=== PATIENT | male | born 1965 | race Caucasian/White ===

== ENCOUNTER 2020-07-30 10:37 | Outpatient (REF) | payer MEDICAID, SELFPAY ==
--- NOTE | 2020-07-30 10:42 | XR_ITS ---
EXAMINATION: XR SHOULDER, RIGHT CLINICAL INFORMATION: Instability COMPARISON: None TECHNIQUE: AP external rotation, Grashey, scapular Y, and axillary views of the right shoulder. FINDINGS: Bone alignment is normal. No fracture or dislocation is seen. The glenohumeral joint is normal. There is mild arthritis at the acromioclavicular joint with joint space narrowing. Soft tissues are unremarkable. XR/XR shoulder RT min 2V IMPRESSION: Mild arthritis at the acromioclavicular joint.
== END 2020-07-30 10:38 | disposition home or self-care (01) ==
LOC: HO.XRAY 10:37
PROVIDERS: PCP Internal Medicine; Visit Provider Internal Medicine
DX: M25.311 Other instability, right shoulder (principal)
CPT/HCPCS: 73030

== ENCOUNTER → 2020-11-23 09:13 | Outpatient (BNVA) | payer OTHER, SELFPAY | PROVIDERS: PCP Internal Medicine; Visit Provider Orthopaedic Surgery | DX: M75.41 Impingement syndrome of right shoulder (principal) | CPT/HCPCS: 99202 ==

== ENCOUNTER 2021-05-10 07:59 | Day surgery (SDC) | payer OTHER, SELFPAY ==
[2021-05-03 10:54] VITALS: BMI 32.6
--- NOTE | 2021-05-09 10:50 | HO.ANESPROP2 ---
Documented by User: Sofya Adams NP 05/09/21 10:50 HPI - Anesthesia Eval Consult details Narrative: 55yo M for Colonoscopy PMFSH Active Problems Active Problems: All Active Problems (Updated 11/23/20 @ 10:59 by Dang Yip MD) Rotator cuff impingement syndrome of right shoulder (Acute) Lipoma of abdominal wall (Acute) Obesity (BMI 30-39.9) (Acute) Anxiety (Acute) Osteoarthritis of right shoulder (Acute) Instability of right shoulder joint (Acute) Past Medical History Medical History Anxiety Instability of right shoulder joint Lipoma of abdominal wall Obesity (BMI 30-39.9) Osteoarthritis of right shoulder Reversal of sterilization Family History Family History Other Family history non-contributory Surgical History Surgical History H/O colonoscopy History of esophagogastroduodenoscopy (EGD) History of open reduction and internal fixation (ORIF) procedure History of vasectomy Social History Social History Household Members: Spouse Alcohol intake: never Patient Tobacco Use Status: Tobacco use Unknown Use of substances other than those prescribed or required for medical reasons: No Advance Directives Information Provided: Yes (informational brochure mailed) Advance Directives on File: No Current occupational status: employed Current occupation: self employed/rt hand Meds Allergies Allergy/AdvReac Type Severity Reaction Status Date / Time NSAIDS (Non-Steroidal Allergy Intermediate rectal Verified 05/03/21 08:09 Anti-Inflamma bleed/GI upset Home Medications Medication Instructions Recorded Confirmed Last Taken Type acetaminophen 650 mg 650 mg PO Q8H PRN 05/03/21 05/03/21 Unknown History tablet,extended release Exam Exam Date and Time: May 09, 2021 1050 Height,Weight and Vital Signs: Height 5 ft 8 in Weight 97.522 kg Assessment and Plan Assessment Anesthesia Assessment: Chart Reviewed Documented by User: Keya Duong MD 05/10/21 08:59 PMFSH Past Medical History Medical History Anxiety Instability of right shoulder joint Lipoma of abdominal wall Obesity (BMI 30-39.9) Osteoarthritis of right shoulder Reversal of sterilization Functional capacity: independent ambulation Family History Family History Other Family history non-contributory Family history of problems with anesthesia: No Surgical History Surgical History H/O colonoscopy History of esophagogastroduodenoscopy (EGD) History of open reduction and internal fixation (ORIF) procedure History of vasectomy History of Problems with Anesthesia: No Social History Social History Household Members: Spouse Alcohol intake: never Patient Tobacco Use Status: Tobacco use Unknown Use of substances other than those prescribed or required for medical reasons: No Advance Directives Information Provided: Yes (informational brochure mailed) Advance Directives on File: No Current occupational status: employed Current occupation: self employed/rt hand Meds Allergies Allergy/AdvReac Type Severity Reaction Status Date / Time NSAIDS (Non-Steroidal Allergy Intermediate rectal Verified 05/03/21 08:09 Anti-Inflamma bleed/GI upset Home Medications Medication Instructions Recorded Confirmed Last Taken Type acetaminophen 650 mg 650 mg PO Q8H PRN 05/03/21 05/03/21 Unknown History tablet,extended release Exam Airway Mallampati Class: III TM Dist: >3cm Neck ROM: Full Heart: RRR Lungs: CTA Assessment and Plan Final Anesthetic Review Family History of Problems with Anesthesia: No History of Problems with Anesthesia: No
[2021-05-10 08:05] VITALS: BP 147/69; PULSE 101; RESP 16; TEMP 36.7; O2SAT 98
[2021-05-10] MEDS: Lactated Ringers 1,000 ML 100 ML IVCONT (08:21)
[2021-05-10 09:48] VITALS: BP 88/50; PULSE 81; RESP 16; TEMP 36.8; O2SAT 96
--- NOTE | 2021-05-10 09:50 | PM.OP ---
Brief Operative Note Date of Service: 05/10/21 Pre-op diagnosis: Screening Post-op diagnosis: other (Colon polyps) Procedure: Colonoscopy to the cecum and TI with snare polypectomy and bx/removal of polyp Surgeon: Connor Boateng Anesthesia: MAC Was an Financial Services Technician used for this Procedure?: No Estimated blood loss (mL): 2.0 Pathology: other (A. Polyps at 12cm) Condition: stable Disposition: PACU
[2021-05-10 10:04] VITALS: BP 97/56; PULSE 73; RESP 18; O2SAT 95
[2021-05-10 10:17] VITALS: BP 123/76; PULSE 80; TEMP 36.7; O2SAT 98
--- NOTE | 2021-05-10 20:49 | OP_ITS ---
SURGEON: Connor Boateng MD INDICATIONS: The patient presents for evaluation of colorectal cancer screening, personal history of colon polyps, and family history of colon cancer. Full consent was obtained from him for this, including risks of bleeding and perforation. PREOPERATIVE DIAGNOSIS: POSTOPERATIVE DIAGNOSIS: PROCEDURE PERFORMED: Colonoscopy to cecum and terminal ileum with snare polypectomy and biopsy and removal of polyp. ESTIMATED BLOOD LOSS: COMPLICATIONS: ANESTHESIA: Monitored anesthesia care. ASSISTANTS: SPECIMENS: PREOPERATIVE DIAGNOSES: Colorectal cancer screening, personal history of colon polyps, family history of colon cancer. POSTOPERATIVE DIAGNOSES: Colorectal cancer screening, personal history of colon polyps, family history of colon cancer, colon polyps, diverticulosis, and internal hemorrhoids. DESCRIPTION OF PROCEDURE: The patient was placed in the left lateral decubitus position. The digital rectal exam revealed no abnormalities. The Olympus video pediatric colonoscope was entered into the rectum and advanced easily to the cecum. Once in the cecum, I did identify normal-appearing cecal pouch with appendiceal orifice and a normal-appearing ileocecal valve. The terminal ileum was cannulated and appeared normal. The scope was withdrawn back in the colon. The entire cecum and ileocecal valve appeared normal. The scope was slowly withdrawn assessing all mucosal surfaces carefully. Preparation was excellent. At 12 cm, were 2 polyps. One was approximately 3 or 4 mm in diameter and was biopsied and completely removed with cold biopsy forceps and the other polyp was approximately 10 mm and grossly adenomatous. This was snared and recovered by suction. The polypectomy site appeared clean, without any sign of residual polyp nor bleeding. I did not visualize any other polyps, colitis, or angiodysplasia. There was a mild amount of sigmoid diverticulosis. In the rectum, scope was retroflexed visualizing small internal hemorrhoids, but no other pathology. The rectal mucosa appeared normal. The scope was straightened and withdrawn from the patient. He tolerated the procedure well and was returned to the recovery area in stable condition. IMPRESSION: 1. Colon polyps, status post snare polypectomy, and biopsy removal. 2. Diverticulosis. 3. Internal hemorrhoids. PLAN: The results of the pathology will be checked. I would recommend a repeat colonoscopy in 5 years for further screening and surveillance. He was advised not to use any aspirin and NSAIDs for 1 week. MD GORDON Castillo/YAMIL / [id number]
== END 2021-05-10 10:57 | disposition home or self-care (01) ==
PROVIDERS: PCP Internal Medicine; Visit Provider Internal Medicine
PROC: 0DJD8ZZ Inspection of Lower Intestinal Tract, Via Natural or Artificial Opening Endoscopic (ICD-10-PCS; CPT 45378; principal; 2021-05-10 09:00)
DX: Z12.11 Encounter for screening for malignant neoplasm of colon (principal); Z86.010 Personal history of colon polyps; Z80.0 Family history of malignant neoplasm of digestive organs; D12.8 Benign neoplasm of rectum; K57.30 Diverticulosis of large intestine without perforation or abscess without bleeding; K64.8 Other hemorrhoids
CPT/HCPCS: 45385; 45380; 88305

== ENCOUNTER 2021-08-06 11:59 | Outpatient (REF) | payer OTHER, SELFPAY ==
--- NOTE | ~2021-08-06 | XR_ITS ---
EXAMINATION: XR CHEST CLINICAL INFORMATION: Cough. COMPARISON: 04/04/2019 chest radiographs. TECHNIQUE: Frontal view of the chest was obtained. FINDINGS: No significant abnormality is noted involving the heart, lungs, mediastinum, bony thorax or soft tissues. XR/XR chest 1V IMPRESSION: No acute cardiopulmonary process.
== END 2021-08-06 12:00 | disposition home or self-care (01) ==
LOC: HO.XRAY 11:59
PROVIDERS: PCP Internal Medicine; Visit Provider Nurse Practitioner Acute Care
DX: R05.8 Other specified cough (principal)
CPT/HCPCS: 71045

== ENCOUNTER 2021-08-21 10:06 | Outpatient (REF) | payer OTHER, SELFPAY ==
[2021-08-21 10:28] LABS: MANUAL DIFF FLAG NO
[2021-08-21 10:37] LABS: Basophils Percent Auto 0.7 % (0-2); Eosinophils Absolute Auto 0.1 X10*3/uL (0.0-0.4); Eosinophils Percent Auto 0.8 % (0-4); Hematocrit 45.4 % (42.0-52.0); Hemoglobin 15.6 g/dl (14.0-18.0); Imm Gran Abs Auto 0.01 X10*3/uL (0.00-0.03); Imm Gran Pct Auto 0.2 % (0.0-0.4); Lymphocytes Absolute Auto 2.4 X10*3/uL (1.2-4.9); Lymphocytes Percent Auto 40.1 % (20-40); Mean Corpuscular HGB Conc 34.4 g/dl (31.0-36.0); Mean Corpuscular Hemoglobin 30.5 pg (27.0-33.0); Mean Corpuscular Volume 88.8 fL (80.0-98.0); Mean Platelet Volume 9.2 fL (9.4-12.4); Monocytes Absolute Auto 0.4 X10*3/uL (0.1-1.2); Monocytes Percent Auto 6.7 % (2-11); Neutrophils Absolute Auto 3.1 x10*3/uL (2.0-8.3); Neutrophils Percent Auto 51.5 % (45-73); Platelet Count 276 X10*3/uL (160-400); Red Blood Count 5.11 X10*6/uL (4.60-5.80); Red Cell Distribution Width 11.8 % (11.0-16.0)
[2021-08-21 11:00] LABS: Estimated Average Glucose 100 mg/dL; Hemoglobin A1c % 5.1 %
[2021-08-21 11:42] LABS: Folate 9.2 ng/mL (> or = 4.0); Vitamin B12 364 pg/mL (200-900)
[2021-08-21 11:49] LABS: Alanine Aminotransferase 34 U/L (0-40); Albumin Level 4.8 g/dL (3.5-5.0); Alkaline Phosphatase 88 U/L (39-117); Anion Gap 11 (12-20); Aspartate Amino Transferase 26 U/L (5-37); Bilirubin Total 0.9 mg/dL (0.0-1.0); Blood Urea Nitrogen 16 mg/dL (9-16); Carbon Dioxide 26 mmol/L (22-29); Chloride 107 mmol/L (96-108); Cholesterol 232 mg/dL; Estimated Glomerular Filt Rate > 60; Glucose Fasting 103 mg/dL (60-99); HDL Cholesterol 38 mg/dL; LDL Cholesterol Calculated 177 mg/dl; Potassium 4.6 mmol/L (3.3-5.1); Sodium 139 mmol/L (135-145); Total Protein 7.5 g/dL (6.5-8.0); Triglycerides 88 mg/dL
[2021-08-21 11:53] LABS: Prostate Specific Antigen Scr 0.64 ng/mL (<0.05-4.0)
[2021-08-26 14:22] LABS: Vitamin D 25-OH, D2 <4 ng/mL; Vitamin D 25-OH, D3 31 ng/mL; Vitamin D 25-OH, Total 31 ng/mL (30-100)
== END 2021-08-21 10:07 | disposition home or self-care (01) ==
LOC: HO.LAB 10:06
PROVIDERS: Absent Provider Internal Medicine; PCP Internal Medicine; Visit Provider Nurse Practitioner Acute Care
DX: Z12.5 Encounter for screening for malignant neoplasm of prostate (principal); Z76.89 Persons encountering health services in other specified circumstances
CPT/HCPCS: 36415; 80053; 80061; 82306; 82607; 82746; 83036; 84153; 84443; 85025

== ENCOUNTER 2021-08-23 08:16 | Outpatient (REF) | payer OTHER, SELFPAY ==
--- NOTE | ~2021-08-23 | US_ITS ---
EXAMINATION: US ABDOMEN COMPLETE CLINICAL INFORMATION: Right lower quadrant pain. COMPARISON: Previous exam November 2010 TECHNIQUE: Real-time imaging of the abdominal viscera. FINDINGS: PANCREAS: Not well visualized due to bowel gas ABDOMINAL AORTA: Not well visualized due to bowel gas INFERIOR VENA CAVA: Visualized portions are normal. LIVER: The liver is normal in size. The liver contour is normal. Liver echotexture is normal. No focal hepatic lesion. There is no intrahepatic biliary duct dilatation seen. GALLBLADDER: Normal. The gallbladder is physiologically distended without evidence of stones, sludge, polyps, wall thickening or pericholecystic fluid. COMMON BILE DUCT: Normal in caliber measuring 0.2 cm in diameter. RIGHT KIDNEY: Normal. No hydronephrosis. No renal calculi or focal parenchymal lesions. The kidney measures 11.5 cm in maximum dimension. LEFT KIDNEY: Normal. No hydronephrosis. No renal calculi or focal parenchymal lesions. The kidney measures 11.6 cm in maximum dimension. SPLEEN: Normal. The spleen measures 10.4 cm in maximum dimension. FREE FLUID: None. US/US abdomen complete IMPRESSION: Limited visualization of the pancreas and aorta. Otherwise unremarkable exam.
== END 2021-08-23 08:17 | disposition home or self-care (01) ==
LOC: HO.HMGCX 08:16
PROVIDERS: Visit Provider Nurse Practitioner Acute Care
DX: R10.31 Right lower quadrant pain (principal)
CPT/HCPCS: 76700

== ENCOUNTER 2021-08-26 10:24 | Outpatient (REF) | payer OTHER, SELFPAY ==
--- NOTE | 2021-08-26 13:46 | MHC.AU.HAS ---
Hearing Aid Evaluation Date of Visit: 08/26/21 Historical Information: Description of Hearing: Right: Moderate to profound mixed hearing loss, Left: Normal to moderately-severe sensorineural hearing loss Summary: Patient was seen for audiological evaluation (see separate report for details). Patient feels he is ready for hearing aids. The word discrimination in the right ear is poorer than the left (36% in the right vs 88% in the left). Binaural word discrimination testing was performed to ensure that the poorer clarity in the right ear would not interfere with overall speech understanding. Binaural word discrimination was 88%, which suggests amplification to the right ear may not interfere with overall speech understanding. We will try a pair of traditional hearing aids rather than a BI-CROS system to start. If during the trial period the patient feels that traditional amplification in the right ear is not beneficial, we could swap it for a CROS. 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 Hearing Aid Prescription: Based on the individual?s shared listening needs, communication environments, dexterity, desire for connectivity, and personal preferences, the following prescription for amplification has been made: Right ear: Manager Enrollment: Phonak Model: Tuva Labseo P70-13T Battery Size: 13 Color: P5 Kiln Packer: 1UP Type of Mold: cShell Left ear: Manager Enrollment: Phonak Model: Audeo P70-13T Battery Size: 13 Color: P5 Kiln Packer: 1M Type of Mold: SlimTip Acyrlic Action Taken/Action Needed: Earmold Impressions Taken Medical Clearance to be requested from PCP/ENT Hearing Instrument Fitting to be scheduled when materials arrive Primary Diagnosis: H90.A31 Mixed HL, Unilateral Right Ear, W/Restricted Contralateral Signature: Provider: Roro Duncan, [facility]
--- NOTE | 2021-08-26 13:48 | MHC.AU.MED ---
Medical Clearance for Hearing Instrumentation Date: 08/26/21 Patient Name: Randy Augustin Date of : 1965 Referring Provider: Marcos Mckeon MD We have seen your patient on 08/26/21 and have determined that they are a candidate for amplification (See accompanying report). Specifically, they would benefit from: Hearing aid use in both ears There is a statute that addresses Medical Evaluation Requirements prior to fitting a patient with a hearing aid. According to [place] statute 265 CMR:6.03(1), (a) General. Except as provided in 265 CMR 6.03(1)(b), a purification operator shall not sell a hearing aid unless the prospective user has presented to the purification operator a written statement signed by a licensed physician that states that the patient's hearing loss has been medically evaluated and the patient may be considered a candidate for a hearing aid. The medical evaluation must have taken place within the preceding six months. Please note: Due to the [place] Statute referenced above, we cannot accept a signature other than that of a licensed physician. WAFER FABRICATION TECHNICIAN and PA signatures cannot be accepted. I am in agreement with the above recommendation. There is no medical contraindication for hearing instrumentation. Physician Signature Date Physician Name (Printed)
--- NOTE | 2021-08-26 13:48 | MHC.AU.ANO ---
Adult Audiological Evaluation Date of Visit: 08/26/21 Reason for Appointment: Patient reports significant difficulty hearing at home and in social situations. He feels his right ear is much worse than the left. He also reports occasional drainage from his ears. History of bilateral, constant tinnitus. Does patient feel they have a hearing loss?: Yes If Yes, Which Ear?: Both Ears When Was Hearing Difficulty First Noticed?: 10+ Years Ago Hearing Handicap Inventory: HHIE SCORE: 40 Based on HHIE score, patient has: Severe perceived hearing handicap Ear History: Ear Deformity: None Reported Recent Ear Drainage: Both Ears Recent Ear Pain: None Reported Family History of Hearing Loss?: No Recent Ear Infections: None Reported Ear Infections in Childhood: None Reported History of Ear Wax Buildup: None Reported Previous Ear Surgery: None Reported Bothersome Tinnitus/Ringing/Noises in Ears: Both Ears Ear used on the phone: Left Ear Blocked/Full Sensation in Ear(s): None Reported 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: [employer] Medical History: Medical History: Unremarkable Medical History Otoscopy: Right Ear: Unremarkable Left Ear: Unremarkable Tympanometry: Tympanometry performed due to: To assess integrity of the middle ear system Right Ear: Normal Middle Ear System (Type A) Left Ear: Normal Middle Ear System (Type A) Hearing Evaluation: Transducer(s) Used: Insert Earphones Method: Conventional Audiometry Stimuli Used: Pure Tones Right Ear: Description of Hearing: Moderate to profound mixed hearing loss Left Ear: Description of Hearing: Normal from 250-1000 Hz, steeply sloping to moderately-severe sensorineural hearing loss Speech Recognition Threshold (SRT): Method Used: Recorded Lists Stimuli Used: Spondee Words Right Ear: 65 dBHL Left Ear: 20 dBHL Word Discrimination: Method: Recorded Lists Word Lists Used: W-22 Right Ear: 36% at 80 dBHL Left Ear: 88% at 65 dBHL Most Comfortable Level (MCL): Right Ear: 80 dBHL Left Ear: 65 dBHL Recommendations: Audiological re-evaluation in one year. See Hearing Aid Evaluation report for more information. Referral to Ear, Nose, and Throat is highly recommended to address asymmetrical mixed hearing loss. Diagnosis: Primary Diagnosis: H90.A31 Mixed HL, Unilateral Right Ear, W/Restricted Contralateral Signature: Provider: Roro Duncan CCC-A
== END 2021-08-26 10:25 | disposition home or self-care (01) ==
LOC: HO.SH 10:24
PROVIDERS: Visit Provider Nurse Practitioner Acute Care
DX: Z01.118 Encounter for examination of ears and hearing with other abnormal findings (principal); Z46.1 Encounter for fitting and adjustment of hearing aid; H90.A31 Mixed conductive and sensorineural hearing loss, unilateral, right ear with restricted hearing on the contralateral side
CPT/HCPCS: 92557; 92567; 92591; V5275

== ENCOUNTER 2021-10-28 08:34 | Outpatient (REF) | payer OTHER, SELFPAY ==
--- NOTE | 2021-10-30 09:16 | MHC.AU.HFA ---
Hearing Instrument Fitting- Adult- Binaural Date of Visit: 10/28/21 Hearing Instruments Dispensed: Right Ear: Joint Maker Machine: Phonak Model: RunReveo P70-13T Serial Number: [id number] Repair Warranty: 12/28/2024 Loss and Damage Warranty: 12/28/2024 Battery Size: 13 Color: P5 Athlete Manager: 1UP Type of Mold: cShell #[id number] Warranty 01/29/2022 Type of Wax Guard: CeruStop Left Ear: Joint Maker Machine: Phonak Model: Audeo P70-13T Serial Number: [id number] Repair Warranty: 12/28/2024 Loss and Damage Warranty: 12/28/2024 Battery Size: 13 Color: P5 Athlete Manager: 1M Type of Mold: cShell #[id number] Warranty 01/29/2022 Type of Wax Guard: CeruStop Summary of Fitting: Feedback perioperative manager run. Verifit performed and levels adjusted to better reach targets. Patient was very pleased with the sound of the instruments. He was amazed that he could hear with his right ear, as he has not heard out of it in a long time. Hearing aid care and maintenance were discussed and practiced. Hearing aids were paired to his phone. Recommendations: Recommendations: A hearing instrument follow-up was scheduled. Diagnosis Code(s): Primary Diagnosis: H90.A31 Mixed HL, Unilateral Right Ear, W/Restricted Contralateral Signature: Provider: Roro Duncan, [facility]
== END 2021-10-28 08:35 | disposition home or self-care (01) ==
LOC: HO.HAP 08:34
PROVIDERS: Visit Provider Internal Medicine
DX: Z46.1 Encounter for fitting and adjustment of hearing aid (principal); H90.A31 Mixed conductive and sensorineural hearing loss, unilateral, right ear with restricted hearing on the contralateral side
CPT/HCPCS: V5011; V5020; V5160; V5261; V5264; V5266

== ENCOUNTER 2023-02-09 09:34 | Outpatient (AMB) | payer OTHER, SELFPAY ==
--- NOTE | 2023-02-09 10:38 | AM.OFFWIN_ITS ---
Intake Vital Signs 02/09/23 10:40 BP 120/76 Blood Pressure Location Rt brachial Position Sitting Pulse 64 Pulse Source Pulse Oximeter Pulse Oximetry (%) 99 Oxygen Delivery Method Room Air Intake Visit Reasons: EP, Back Pain Intake Note: Patient here because he put in a window about 2 weeks ago and is now having lower back pain and in hips. he has tried rest and tylenol which does not help. Patient Tobacco Use Status: Never used Tobacco Allergies NSAIDS (Non-Steroidal Anti-Inflamma Allergy (Intermediate, Verified 02/09/23 11:15) rectal bleed/GI upset fluoxetine Adverse Reaction (Intermediate, Verified 02/09/23 11:15) Headache Medication List - Last Reconciled 02/09/23 by Mikel Estrada MD acetaminophen ER 650 mg PO Q8H PRN lorazepam 0.5 mg PO DAILY PRN 30 days Do you need a note to return to daycare/school/sports/work: No HPI EP, Back Pain HPI Details Patient presents to the office for a sick visit. Complaining of lower back pain for the past week. No history of fall or trauma prior to the onset of symptoms. No urinary incontinence. No fevers or chills. Pain is worse on bending forwards or sideways. Relieve done sitting down. Pain is radiating into the gluteal area. [facility] Medical History (Updated 02/09/23 @ 11:17 by Mikel Estrada MD) Anxiety Encounter to establish care Instability of right shoulder joint Lipoma of abdominal wall Mild depressive disorder Obesity (BMI 30-39.9) Osteoarthritis of right shoulder Reversal of sterilization Surgical History (Updated 05/23/22 @ 14:22 by ANUP Shelton) H/O colonoscopy History of esophagogastroduodenoscopy (EGD) History of open reduction and internal fixation (ORIF) procedure History of vasectomy Family History Other Family history non-contributory Social History Household Members: Spouse Housing: House Alcohol intake: never Patient Tobacco Use Status: Never used Tobacco e-Cigarette/Vaping Use: Never Used Second Hand Smoke Exposure: No service: Yes Current occupational status: employed Current occupation: self employed/rt hand Cognitive needs: No Hearing needs: Yes (hearingaid ) Vision needs: Yes (glasses) Physical Exam Vital Signs: Last Vital Signs Pulse 64 02/09/23 10:40 BP 120/76 02/09/23 10:40 Pulse Ox 99 02/09/23 10:40 Oxygen Delivery Method Room Air 02/09/23 10:40 General: Yes no CVA tenderness Back/Spine/Pelvis Other: No paraspinal spasm. Back: no CVA tenderness Assessment & Plan Assessment & Plan (1) Chronic lower back pain: Code(s): M54.50 - Low back pain, unspecified; G89.29 - Other chronic pain Plan: Patient was advised to return for a Toradol injection. Meloxicam and cyclobenzaprine called in. . Patient was advised rest. Note for work if necessary provided. Once pain symptoms subside, patient should start physical therapy. If symptoms worsen to follow-up here. Coding Level of Care Code Est Pt Level 4 (30250) Diagnoses Chronic lower back pain M54.50; G89.29
[2023-02-09 10:40] VITALS: BP 120/76; PULSE 64; O2SAT 99
== END 2023-02-09 11:32 | disposition home or self-care (01) ==
PROVIDERS: PCP Internal Medicine; Visit Provider Internal Medicine
DX: M54.50 Low back pain, unspecified (principal); G89.29 Other chronic pain
CPT/HCPCS: 96372; 99214; J1885

== ENCOUNTER 2023-03-06 13:51 | Outpatient (AMB) | payer OTHER, SELFPAY ==
--- NOTE | 2023-03-06 13:54 | A.OFFPC_ITS ---
Vital Signs 03/06/23 14:00 Height 5 ft 8 in Weight 185 lb 6 oz BMI 28.2 BP 120/78 Blood Pressure Location Lt brachial Position Sitting Pulse 96 Pulse Source Pulse Oximeter Pulse Oximetry (%) 98 Oxygen Delivery Method Room Air Intake Visit Reasons: Back Pain/Lump Right side Neck Intake Note: Pt is here for back, hip pain, Lump on right side of the neck. Benefits Assistant Required: No Accompanied by: Spouse Allergies NSAIDS (Non-Steroidal Anti-Inflamma Allergy (Intermediate, Verified 03/06/23 14:03) rectal bleed/GI upset fluoxetine Adverse Reaction (Intermediate, Verified 03/06/23 14:03) Headache Tobacco use date assessed: 03/06/23 Dental Screening Dental Screen Date: 03/06/23 Did you have a dental visit in the last 12 months?: Yes Did you have a dental problem in the last 6 months where you did not have access to dental care?: No Was dental information given to patient?: Patient has dentist HPI HPI Comments History of Present Illness Details 57-year-old male past medical history significant for chronic low back pain, hyperlipidemia and generalized anxiety disorder. Patient of Dr. Mckeon patient present today for follow up. Review of the notes and patient was seen in the walk-in clinic on 02/09/23 after putting in a window patient denies any bowel arm or bladder complaints at that time and did have pain radiating to his glutes. Patient was given Toradol injection and was prescribed meloxicam. Patient states back pain has improved, Patient states left hip pain, hard to bend over and gets sharp. Patient states taking tylenol with some relief of pain. Patient requesting left hip x-ray. Patient also reports lump to right neck collar bone area, states previously had a cyst there 6 years ago for which she had removed. Patient unsure if the cyst is coming back. Denies any pain, difficultly swallowing or breathing. Patient also reports atypical mole to left thoracic back area, referral entered to Dermatology. [facility] Medical History (Updated 03/06/23 @ 14:21 by ANUP Crespo) Anxiety Encounter to establish care Instability of right shoulder joint Lipoma of abdominal wall Mild depressive disorder Obesity (BMI 30-39.9) Osteoarthritis of right shoulder Reversal of sterilization Surgical History H/O colonoscopy History of esophagogastroduodenoscopy (EGD) History of open reduction and internal fixation (ORIF) procedure History of vasectomy Family History Other Family history non-contributory Social History Household Members: Spouse Housing: House Alcohol intake: never Patient Tobacco Use Status: Never used Tobacco e-Cigarette/Vaping Use: Never Used Second Hand Smoke Exposure: No service: Yes Current occupational status: employed Current occupation: self employed/rt hand Cognitive needs: No Hearing needs: Yes (hearingaid ) Vision needs: Yes (glasses) Questionnaire PHQ-9 Over the last 2 weeks, how often have you been bothered by any of the following problems? 1. Little interest or pleasure in doing things: not at all 2. Feeling down, depressed, or hopeless: not at all 3. Trouble falling or staying asleep, or sleeping too much: not at all 4. Feeling tired or having little energy: not at all 5. Poor appetite or overeating: not at all 6. Feeling bad about yourself - or that you are a failure or have let yourself or your family down: not at all 7. Trouble concentrating on things, such as reading the newspaper or watching television: not at all 8. Moving or speaking so slowly that other people could have noticed. Or the opposite - being so fidgety or restless that you have been moving around a lot more than usual: not at all 9. Thoughts that you would be better off or of hurting yourself in some way: not at all Total score: 0 Depression Screening Interpretation: Negative 21788 - PHQ-9 Billing: Yes Source: Developed by Drs. Connor Starr, Radhika Wilde, Vidal Silva and colleagues, with an educational syed from [employer]. Thrive Questionnaire Date Thrive assessed: 03/06/23 I am a: Patient What is your living situation today?: I have a steady place to live Within the past 12 months, did the food you bought not last and you didn't have the money to get more?: Never true Within the past 12 months, did you worry whether your food would run out before you got money to buy more?: Never true Do you have trouble paying for medicines?: No Do you have trouble getting transportation to medical appointments?: No Do you have trouble paying your heating and electricity bill?: No Do you have trouble taking care of your child, family member or friend?: No Do you have trouble with day-to-day activities such as bathing, preparing meals, shopping, managing finances, etc.?: No Are you currently unemployed and looking for a job?: No Are you interested in more education?: No Please select the resources that you would like help with: None Currently or been in a relationship where the following occur: no concerns reported AUDIT C Alcohol Use Questionnaire (AUDIT-C) 1. How often do you have a drink containing alcohol?: Never 3. How often do you have six or more drinks on one occasion?: Never Total Score: 0 DOREEN-7 AMB Questionnaire DOREEN-7 Date DOREEN - 7 assessed: 03/06/23 (pt taking medication; lorazepam PRN) Feeling nervous, anxious, or on edge: 0 = Not at all Not being able to stop or control worryin = Not at all Worrying too much about different things: 0 = Not at all Trouble relaxin = Not at all Being so restless that it is hard to sit still: 0 = Not at all Becoming easily annoyed or irritable: 0 = Not at all Feeling afraid as if something awful might happen: 0 = Not at all Total DOREEN-7 score (0-4 normal; 5-9 mild; 10-14 moderate; 15-21 severe): 0 Source: Developed by Drs. Connor Starr, Radhika Wilde, Vidal Silva and colleagues, with an educational syed from [employer]. DOREEN-7 Assessment Billing DOREEN-7 Assessment Tool: DOREEN-7 Assessment 26738 Review of Systems Const Denies chills, Denies fatigue, Denies fever(s) and Denies poor appetite Eyes Denies no additional complaints ENT Reports Normal hearing present Card Denies chest pain, Denies syncope, Denies rapid heart rate and Denies dyspnea Resp Denies cough and Denies dyspnea GI Denies change in stool character, Denies constipation, Denies diarrhea, Denies nausea and Denies vomiting Denies dysuria, Denies urinary frequency and Denies urinary urgency Musc Reports arthralgias (left hip pain ) Skin/Breast Details: mole to left back Neuro Reports Normal hearing present, Denies confusion and Denies syncope Psych Denies confusion Endo Denies fatigue Physical exam (Primary Care) Vital Signs: Last Vital Signs Pulse 96 03/06/23 14:00 BP 120/78 03/06/23 14:00 Pulse Ox 98 03/06/23 14:00 Oxygen Delivery Method Room Air 03/06/23 14:00 BMI result Body Mass Index 28.2 Tobacco/Smoking Status: Tobacco use Status Tobacco use date assessed 03/06/23 03/06/23 14:06 Patient Tobacco Use Status Never used Tobacco 03/06/23 13:55 e-Cigarette/Vaping Use Never Used 03/06/23 13:55 PHQ-9: PHQ-9 Score PHQ-9: Total score 0 03/06/23 14:12 Depression Screening Interpretation: Negative Thrive Assessment: Date of Thrive Assessment Date Thrive assessed 03/06/23 03/06/23 14:06 Currently or been in a relationship where the following occur: no concerns reported Const General: No confusion Orientation/consciousness: No confusion HENMT Head: Yes normocephalic and Yes atraumatic Eyes Conjunctivae: conjunctivae normal Neck Neck images: 1. Firm rahat like prominence noted to right clavicle. With scar tissue noted from previous cyst removal Chest Chest palpation & inspection: normal inspection of the chest Resp Effort & Inspection: normal respiratory effort Auscultation: clear to auscultation bilaterally, no crackles, no rhonchi and no wheezes Cardio Rate: regular rate Rhythm: regular rhythm Heart sounds: S1 normal heart sound present and S2 normal heart sound present GI Inspection: Yes normal to inspection Back/Spine/Pelvis Back/spine/pelvis image: 1. irregular light brown, slighty raised wedge shaped nevi noted to left thoracic area. Neuro General: No confusion Cranial nerves: Yes Normal hearing present Extrem General: No edema Left lower extremity: normal to inspection and hip/thigh Details: abnormal ROM Details: pain with active ROM and pain with passive ROM; no tenderness, no swelling, no crepitus and no unusual warmth Assessment and Plan Assessment & Plan (1) Left hip pain: Code(s): M25.552 - Pain in left hip Plan: Refill sent on patient's meloxicam. Patient advised to take medication with food to prevent GI upset and do not take with any other NSAID medications. Left hip x-ray ordered as requested by patient. Offered referral physical therapy for hip pain however patient states he would like to have x-ray completed 1st. (2) Lump in neck: Comment: left side, Code(s): R22.1 - Localized swelling, mass and lump, neck Plan: Head and neck ultrasound ordered to further evaluate for possible cyst recurrent (3) Atypical nevi: Code(s): D22.9 - Melanocytic nevi, unspecified Plan: Referral entered to dermatology. Plan Keep scheduled follow-up with PCP year follow-up sooner if needed. Orders: Orders XR hip LT min 2V Today M25.552 - Pain in left hip US soft tiss head and/or neck Today R22.1 - Localized swelling, mass and lump, neck Referrals Dermatology Referral D22.9 - Melanocytic nevi, unspecified Medications: Refilled meloxicam 15 mg PO DAILY 14 tabs 0RF Coding Level of Care Code Est Pt Level 3 (88542) Diagnoses Left hip pain M25.552 Lump in neck R22.1 Atypical nevi D22.9 Additional Codes DOREEN-7 Assessment Billing - DOREEN-7 Assessment Tool: DOREEN-7 Assessment 61557 ([id number])
[2023-03-06 14:00] VITALS: BP 120/78; PULSE 96; O2SAT 98; BMI 28.2
== END 2023-03-06 14:31 | disposition home or self-care (01) ==
PROVIDERS: PCP Internal Medicine; Visit Provider Nurse Practitioner Family
DX: M25.552 Pain in left hip (principal); R22.1 Localized swelling, mass and lump, neck; D22.9 Melanocytic nevi, unspecified
CPT/HCPCS: 99213

== ENCOUNTER 2023-03-13 09:48 | Outpatient (REF) | payer OTHER, SELFPAY ==
--- NOTE | ~2023-03-13 | XR_ITS ---
EXAMINATION: XR HIP, LEFT CLINICAL INFORMATION: Left hip pain COMPARISON: None available. TECHNIQUE: Two views of the left hip. FINDINGS: Mild degenerative changes with joint space narrowing and hypertrophic change left hip. Mild degenerative changes on limited views of the left sacroiliac joint. XR/XR hip LT min 2V IMPRESSION: Mild degenerative changes left hip. Additional imaging with CT scan or MRI should be considered for better visualization as these modalities are much more sensitive for detection of fracture or other underlying pathology.
== END 2023-03-13 09:49 | disposition home or self-care (01) ==
LOC: HO.XRAY 09:48
PROVIDERS: PCP Internal Medicine; Visit Provider Nurse Practitioner Family
DX: M25.552 Pain in left hip (principal)
CPT/HCPCS: 73502

== ENCOUNTER 2023-03-16 12:44 | Outpatient (REF) | payer OTHER, SELFPAY ==
--- NOTE | ~2023-03-16 | US_ITS ---
EXAMINATION: US SOFT TISSUE HEAD/NECK CLINICAL INFORMATION: Right neck lump. COMPARISON: None available. TECHNIQUE: Linear transducer padilla-scale and color Doppler examination of the area indicated by patient midline right supraclavicular. FINDINGS: No ultrasound abnormality in the supraclavicular region is identified by ultrasound. No solid or cystic mass or lymphadenopathy is seen. There is an 8 x 6 x 7 mm spongiform nodule in the right thyroid isthmus. TI RADS category 1. No ultrasound followup or fine-needle aspiration recommended. No other thyroid nodule appreciated. The right lobe of the thyroid gland measures 5 x 1.6 x 1.3 cm, volume 5.4 mL. The left lobe of the thyroid gland measures 4.4 x 1.3 x 1.7 cm, volume 5.1 mL. Thyroid gland is normal in size, echotexture and vascularity. US/US soft tiss head and/or neck IMPRESSION: No abnormality in the right supraclavicular region seen by ultrasound. Subcentimeter spongiform right thyroid isthmus nodule. TI RADS category 1. No ultrasound followup or fine-needle aspiration recommended.
== END 2023-03-16 12:45 | disposition home or self-care (01) ==
LOC: HO.HMGCX 12:44
PROVIDERS: PCP Internal Medicine; Visit Provider Nurse Practitioner Family
DX: R22.1 Localized swelling, mass and lump, neck (principal)
CPT/HCPCS: 76536

== ENCOUNTER 2023-05-27 13:37 | Outpatient (AMB) | payer OTHER, SELFPAY ==
[2023-05-27 13:42] VITALS: BP 108/76; PULSE 86; O2SAT 98; BMI 28.5
--- NOTE | 2023-05-27 13:42 | A.OFFPC_ITS ---
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 Accompanied by: Self / Same As Patient Allergies NSAIDS (Non-Steroidal Anti-Inflamma Allergy (Intermediate, Verified 05/27/23 14:00) rectal bleed/GI upset fluoxetine Adverse Reaction (Intermediate, Verified 05/27/23 14:00) Headache Medication List - Last Reconciled 05/27/23 by Marcos Mckeon MD acetaminophen ER 650 mg PO Q8H PRN cyclobenzaprine 10 mg PO BEDTIME PRN lorazepam 0.5 mg PO DAILY PRN 30 days Tobacco use date assessed: 05/27/23 Dental Screening Dental Screen Date: 05/27/23 Did you have a dental visit in the last 12 months?: No Did you have a dental problem in the last 6 months where you did not have access to dental care?: No Was dental information given to patient?: No HPI Annual Exam HPI Details Patient comes in today for his annual physical examination - was last seen by me on 11/15/2020 States that he feels okay He denies any headaches or dizziness Denies any chest pains, no SOB No nausea/vomiting, no abdominal pain No change in bowel habits noted Denies any acute urinary symptoms His colonoscopy was last done in 2020 and he will be due for repeat colonoscopy in 5 years (2025) [facility] Medical History (Updated 05/30/23 @ 11:38 by Marcos Mckeon MD) Pure hypercholesterolemia Mild depressive disorder Encounter to establish care Lipoma of abdominal wall Obesity (BMI 30-39.9) Anxiety Osteoarthritis of right shoulder Reversal of sterilization Instability of right shoulder joint Surgical History (Updated 05/27/23 @ 14:14 by Marcos Mckeon MD) History of open reduction and internal fixation (ORIF) procedure History of esophagogastroduodenoscopy (EGD) H/O colonoscopy History of vasectomy Family History Other Family history non-contributory Social History Household Members: Spouse Housing: House Alcohol intake: never Patient Tobacco Use Status: Never used Tobacco e-Cigarette/Vaping Use: Never Used Second Hand Smoke Exposure: No service: Yes Current occupational status: employed Current occupation: self employed/rt hand Cognitive needs: No Hearing needs: Yes (hearingaid ) Vision needs: Yes (glasses) Questionnaire PHQ-9 Over the last 2 weeks, how often have you been bothered by any of the following problems? 1. Little interest or pleasure in doing things: not at all 2. Feeling down, depressed, or hopeless: not at all 3. Trouble falling or staying asleep, or sleeping too much: not at all 4. Feeling tired or having little energy: not at all 5. Poor appetite or overeating: not at all 6. Feeling bad about yourself - or that you are a failure or have let yourself or your family down: not at all 7. Trouble concentrating on things, such as reading the newspaper or watching television: not at all 8. Moving or speaking so slowly that other people could have noticed. Or the opposite - being so fidgety or restless that you have been moving around a lot more than usual: not at all 9. Thoughts that you would be better off or of hurting yourself in some way: not at all Total score: 0 Depression Screening Interpretation: Negative Depression Screening Done: Yes 64021 - PHQ-9 Billing: Yes Source: Developed by Drs. Connor Starr, Radhika Wilde, Vidal Silva and colleagues, with an educational syed from [employer]. Thrive Questionnaire Date Thrive assessed: 05/27/23 I am a: Patient What is your living situation today?: I have a steady place to live Within the past 12 months, did the food you bought not last and you didn't have the money to get more?: Never true Within the past 12 months, did you worry whether your food would run out before you got money to buy more?: Never true Do you have trouble paying for medicines?: No Do you have trouble getting transportation to medical appointments?: No Do you have trouble paying your heating and electricity bill?: No Do you have trouble taking care of your child, family member or friend?: No Do you have trouble with day-to-day activities such as bathing, preparing meals, shopping, managing finances, etc.?: No Are you currently unemployed and looking for a job?: No Are you interested in more education?: No Please select the resources that you would like help with: None Currently or been in a relationship where the following occur: no concerns reported AUDIT C Alcohol Use Questionnaire (AUDIT-C) 1. How often do you have a drink containing alcohol?: Never 3. How often do you have six or more drinks on one occasion?: Never Total Score: 0 Score Reviewed/Action Taken: Yes DOREEN-7 AMB Questionnaire DOREEN-7 Date DOREEN - 7 assessed: 05/27/23 (pt taking medication; lorazepam PRN) Feeling nervous, anxious, or on edge: 0 = Not at all Not being able to stop or control worryin = Not at all Worrying too much about different things: 0 = Not at all Trouble relaxin = Not at all Being so restless that it is hard to sit still: 0 = Not at all Becoming easily annoyed or irritable: 0 = Not at all Feeling afraid as if something awful might happen: 0 = Not at all Total DOREEN-7 score (0-4 normal; 5-9 mild; 10-14 moderate; 15-21 severe): 0 Source: Developed by Drs. Connor Starr, Radhika Wilde, Vidal Silva and colleagues, with an educational syed from [employer]. DOREEN-7 Assessment Billing DOREEN-7 Assessment Tool: DOREEN-7 Assessment 37152 Review of Systems Const Denies chills, Denies fatigue, Denies fever(s), Denies headache(s), Denies malaise and Denies weakness Eyes Denies blurry vision, Denies change in vision, Denies irritation and Denies itchy eyes ENT Denies dysphagia, Denies dizziness, Denies otalgia, Denies headache(s), Denies nasal congestion, Denies neck pain, Denies odynophagia and Denies sore throat Card Denies chest pain, Denies rapid heart rate, Denies irregular heart rhythm, Denies palpitations and Denies dyspnea Resp Denies chest congestion, Denies cough, Denies dyspnea and Denies wheezing GI Denies abdominal pain, Denies bloating, Denies constipation, Denies dysphagia, Denies heartburn, Denies diarrhea, Denies nausea, Denies odynophagia and Denies vomiting Denies hematuria, Denies difficulty urinating, Denies dysuria, Denies urinary frequency and Denies urinary urgency Musc Denies back pain, Denies arthralgias, Denies joint swelling, Denies muscle weakness and Denies neck pain Skin/Breast Denies change in pigmentation, Denies lesions, Denies rash and Denies unusual bruising Neuro Denies dizziness, Denies headache(s), Denies paresthesias and Denies weakness Endo Denies fatigue and Denies palpitations Aller/Immun Denies itchy eyes and Denies wheezing Physical exam (Primary Care) Vital Signs: Last Vital Signs Pulse 86 05/27/23 13:42 BP 108/76 05/27/23 13:42 Pulse Ox 98 05/27/23 13:42 Oxygen Delivery Method Room Air 05/27/23 13:42 BMI result Body Mass Index 28.5 Tobacco/Smoking Status: Tobacco use Status Tobacco use date assessed 05/27/23 05/27/23 13:43 Patient Tobacco Use Status Never used Tobacco 05/27/23 13:43 Tobacco use type 05/27/23 14:16 e-Cigarette/Vaping Use Never Used 05/27/23 13:43 PHQ-9: PHQ-9 Score PHQ-9: Total score 0 05/27/23 14:10 Depression Screening Interpretation: Negative Thrive Assessment: Date of Thrive Assessment Date Thrive assessed 05/27/23 05/27/23 13:43 Currently or been in a relationship where the following occur: no concerns reported Const General: no acute distress, alert and awake Orientation/consciousness: patient oriented x3 HENMT Head: Yes normocephalic and Yes atraumatic Ears: external ears normal, TM's normal bilaterally and EAC's normal General nose exam: No nasal discharge present Face and sinus: Yes normal facial exam and Yes sinuses nontender Teeth and gingiva: dentition normal Throat: Yes posterior oropharynx normal and Yes tonsils normal (no TP congestion) Eyes Eyelids: Yes eyelids normal Conjunctivae: conjunctivae normal Pupils: Equal, round and reactive pupils present EOM: EOMs intact bilaterally Neck Neck: Yes no lymphadenopathy and Yes supple Thyroid: Thyroid normal Resp Auscultation: clear to auscultation bilaterally, no rales and no wheezes Cardio Rate: regular rate Rhythm: regular rhythm Heart sounds: no murmurs GI Palpation (GI): Soft to palpation, nontender and No hepatosplenomegaly present Auscultation: normal bowel sounds General: Yes no CVA tenderness Back/Spine/Pelvis Back: no CVA tenderness Thoracic/Lumbar Spine: thoracic and lumbar spine normal to inspection Skin Lesions: no lesions Rashes: no rashes Neuro General: patient oriented x3, moves all extremities, no focal motor deficits and CN's II-XI intact bilaterally Cranial nerves: Yes Equal, round and reactive pupils present Cognition (Neuro): normal cognition Gait exam (Neuro): Normal gait present Extrem General: Yes no clubbing, cyanosis or edema Assessment and Plan Assessment & Plan (1) Annual physical exam: Code(s): Z00.00 - Encounter for general adult medical examination without abnormal findings Plan: Check labs He is up-to-date with his cancer screenings (2) Pure hypercholesterolemia: Code(s): E78.00 - Pure hypercholesterolemia, unspecified Plan: Reinforced low cholesterol diet Reminded that his cholesterol levels back in July 2021 (when they were last checked) were elevated, with his total cholesterol at 232 mg/dl and LDL cholesterol at 177 mg/dl and that he should work on getting these lower if he wants to avoid having to take medications to help lower his cholesterol levels Will recheck his fasting lipids [facility] for follow up (3) Osteoarthritis of right shoulder: Code(s): M19.011 - Primary osteoarthritis, right shoulder Qualifiers: Osteoarthritis type: unspecified Qualified Code(s): M19.011 - Primary osteoarthritis, right shoulder Plan: X-rays of the right shoulder done in July 2020 showed (+) mild AC joint art hritis Continue Acetaminophen ER 650 mg Q 8 hours PRN Follow up with orthopedics as scheduled (4) Anxiety: Code(s): F41.9 - Anxiety disorder, unspecified Plan: Continue Lorazepam 0.5 mg QD PRN Advised again that if his anxiety gets worse, should consider taking something daily for maintenance therapy (5) Overweight (BMI 25.0-29.9): Code(s): E66.3 - Overweight Plan: Reinforced diet/exercise as tolerated/lose weight Plan To return in 1 year for his next annual physical examination Orders: Orders Comprehensive [place]. Panel Fast 05/27/23 Z00.00 - Encounter for general adult medical examination without abnormal findings Lipid Panel 05/27/23 E78.00 - Pure hypercholesterolemia, unspecified, Z00.00 - Encounter for general adult medical examination without abnormal findings Vitamin D 25-OH Total 05/27/23 E55.9 - Vitamin D deficiency, unspecified, Z00.00 - Encounter for general adult medical examination without abnormal findings Complete Blood Count Auto Diff 05/27/23 Z00.00 - Encounter for general adult medical examination without abnormal findings TSH reflex Free T4 05/27/23 Z00.00 - Encounter for general adult medical examination without abnormal findings UA CC w/rflx Micro + Cult 05/27/23 R30.0 - Dysuria, Z00.00 - Encounter for general adult medical examination without abnormal findings Prostate Specific Antigen 05/27/23 R35.0 - Frequency of micturition, Z00.00 - Encounter for general adult medical examination without abnormal findings Coding Level of Care Code Est Pt Prev Care 40-64y(10295) Diagnoses Annual physical exam Z00.00 Pure hypercholesterolemia E78.00 Osteoarthritis of right shoulder, unspecified osteoarthritis type M19.011 Osteoarthritis type: unspecified Anxiety F41.9 Overweight (BMI 25.0-29.9) E66.3 Additional Codes DOREEN-7 Assessment Billing - DOREEN-7 Assessment Tool: DOREEN-7 Assessment 59315 ([id number])
== END 2023-05-27 14:22 | disposition home or self-care (01) ==
PROVIDERS: Visit Provider Internal Medicine
DX: Z00.00 Encounter for general adult medical examination without abnormal findings (principal); E78.00 Pure hypercholesterolemia, unspecified; M19.011 Primary osteoarthritis, right shoulder; F41.9 Anxiety disorder, unspecified; E66.3 Overweight
CPT/HCPCS: 99396

== ENCOUNTER 2024-05-30 17:26 | Outpatient (AMB) | payer OTHER, SELFPAY ==
[2024-05-30 17:29] VITALS: BP 130/74; PULSE 91; O2SAT 98; BMI 30.3
--- NOTE | 2024-05-30 17:29 | A.OFFPC_ITS ---
Vital Signs 05/30/24 17:29 Height 5 ft 8 in Weight 199 lb BMI 30.3 BP 130/74 Blood Pressure Location Lt brachial Position Sitting Pulse 91 Pulse Source Pulse Oximeter Pulse Oximetry (%) 98 Oxygen Delivery Method Room Air Intake Visit Reasons: Annual Exam [employer] Officer Required: No Accompanied by: Self / Same As Patient Allergies NSAIDS (Non-Steroidal Anti-Inflamma Allergy (Intermediate, Verified 05/30/24 17:57) rectal bleed/GI upset fluoxetine Adverse Reaction (Intermediate, Verified 05/30/24 17:57) Headache Medication List - Last Reconciled 05/30/24 by Marcos Mckeon MD acetaminophen ER 650 mg PO Q8H PRN lorazepam 0.5 mg PO DAILY PRN 30 days Tobacco use date assessed: 05/30/24 Dental Screening Dental Screen Date: 05/30/24 Did you have a dental visit in the last 12 months?: No Did you have a dental problem in the last 6 months where you did not have access to dental care?: No Was dental information given to patient?: No HPI Annual Exam HPI Details Patient comes in today for his annual physical examination States that he feels okay He denies any headaches or dizziness Denies any chest pains, no SOB No nausea/vomiting, no abdominal pain No change in bowel habits noted Denies any acute urinary symptoms Needs his Lorazepam Rx refilled His colonoscopy was last done in 2020 and he will be due for repeat colonoscopy in 5 years (2025) [facility] Medical History (Updated 05/30/24 @ 19:25 by Marcos Mckeon MD) Mild depression Pure hypercholesterolemia Lipoma of abdominal wall Obesity (BMI 30-39.9) Anxiety Osteoarthritis of right shoulder Reversal of sterilization Instability of right shoulder joint Surgical History History of open reduction and internal fixation (ORIF) procedure History of esophagogastroduodenoscopy (EGD) H/O colonoscopy History of vasectomy Family History Other Family history non-contributory Social History Household Members: Spouse Housing: House Alcohol intake: never Patient Tobacco Use Status: Never used Tobacco e-Cigarette/Vaping Use: Never Used Second Hand Smoke Exposure: No service: Yes Current occupational status: employed Current occupation: self employed/rt hand Cognitive needs: No Hearing needs: Yes (hearingaid ) Vision needs: Yes (glasses) Questionnaire PHQ-9 Over the last 2 weeks, how often have you been bothered by any of the following problems? 1. Little interest or pleasure in doing things: not at all 2. Feeling down, depressed, or hopeless: not at all 3. Trouble falling or staying asleep, or sleeping too much: not at all 4. Feeling tired or having little energy: not at all 5. Poor appetite or overeating: not at all 6. Feeling bad about yourself - or that you are a failure or have let yourself or your family down: not at all 7. Trouble concentrating on things, such as reading the newspaper or watching television: not at all 8. Moving or speaking so slowly that other people could have noticed. Or the o pposite - being so fidgety or restless that you have been moving around a lot more than usual: not at all 9. Thoughts that you would be better off or of hurting yourself in some way: not at all Total score: 0 Depression Screening Interpretation: Negative Depression Screening Done: Yes 95458 - PHQ-9 Billing: Yes Source: Developed by Drs. Connor Starr, Rahdika Wilde, Vidal Silva and colleagues, with an educational syed from [employer]. Thrive Questionnaire Date Thrive assessed: 05/30/24 I am a: Patient What is your living situation today?: I have a steady place to live Within the past 12 months, did the food you bought not last and you didn't have the money to get more?: I choose not to answer this question Within the past 12 months, did you worry whether your food would run out before you got money to buy more?: I choose not to answer this question Do you have trouble paying for medicines?: No Do you have trouble getting transportation to medical appointments?: No Do you have trouble paying your heating and electricity bill?: No Do you have trouble taking care of your child, family member or friend?: I choose not to answer this question Do you have trouble with day-to-day activities such as bathing, preparing meals, shopping, managing finances, etc.?: No Are you currently unemployed and looking for a job?: No Are you interested in more education?: No Please select the resources that you would like help with: None Currently or been in a relationship where the following occur: I choose not to answer THRIVE Score: 0 AUDIT C Alcohol Use Questionnaire (AUDIT-C) 1. How often do you have a drink containing alcohol?: Never Total Score: 0 Score Reviewed/Action Taken: Yes DOREEN-7 AMB Questionnaire DOREEN-7 Date DOREEN - 7 assessed: 05/30/24 (pt taking medication; lorazepam PRN) Feeling nervous, anxious, or on edge: 0 = Not at all Not being able to stop or control worryin = Not at all Worrying too much about different things: 0 = Not at all Trouble relaxin = Not at all Being so restless that it is hard to sit still: 0 = Not at all Becoming easily annoyed or irritable: 0 = Not at all Feeling afraid as if something awful might happen: 0 = Not at all Total DOREEN-7 score (0-4 normal; 5-9 mild; 10-14 moderate; 15-21 severe): 0 Source: Developed by Drs. Connor Starr, Radhika Wilde, Vidal Silva and colleagues, with an educational seyd from [employer]. Review of Systems Const Denies chills, Denies fatigue, Denies fever(s), Denies headache(s), Denies malaise and Denies weakness Eyes Denies blurry vision, Denies change in vision, Denies irritation and Denies itchy eyes ENT Denies dysphagia, Denies dizziness, Denies otalgia, Denies headache(s), Denies nasal congestion, Denies neck pain, Denies odynophagia and Denies sore throat Card Denies chest pain, Denies rapid heart rate, Denies irregular heart rhythm, Denies palpitations and Denies dyspnea Resp Denies chest congestion, Denies cough, Denies dyspnea and Denies wheezing GI Denies abdominal pain, Denies bloating, Denies constipation, Denies dysphagia, Denies heartburn, Denies diarrhea, Denies nausea, Denies odynophagia and Denies vomiting Denies hematuria, Denies difficulty urinating, Denies dysuria, Denies urinary frequency and Denies urinary urgency Musc Denies back pain, Denies arthralgias, Denies joint swelling, Denies muscle weakness and Denies neck pain Skin/Breast Denies change in pigmentation, Denies lesions, Denies rash and Denies unusual bruising Neuro Denies dizziness, Denies headache(s), Denies paresthesias and Denies weakness Endo Denies fatigue and Denies palpitations Aller/Immun Denies itchy eyes and Denies wheezing Physical exam (Primary Care) Vital Signs: Last Vital Signs Pulse 91 05/30/24 17:29 BP 130/74 05/30/24 17:29 Pulse Ox 98 05/30/24 17:29 Oxygen Delivery Method Room Air 05/30/24 17:29 BMI result Body Mass Index 30.3 Tobacco/Smoking Status: Tobacco use Status Tobacco use date assessed 05/30/24 05/30/24 17:34 Patient Tobacco Use Status Never used Tobacco 05/30/24 17:34 Tobacco use type 05/27/23 14:20 e-Cigarette/Vaping Use Never Used 05/30/24 17:34 PHQ-9: PHQ-9 Score PHQ-9: Total score 0 05/30/24 18:14 Depression Screening Interpretation: Negative Thrive Assessment: Date of Thrive Assessment Date Thrive assessed 05/30/24 05/30/24 17:34 Currently or been in a relationship where the following occur: I choose not to answer Const General: no acute distress, alert and awake Orientation/consciousness: patient oriented x3 HENMT Head: Yes normocephalic and Yes atraumatic Ears: external ears normal, TM's normal bilaterally and EAC's normal General nose exam: No nasal discharge present Face and sinus: Yes normal facial exam and Yes sinuses nontender Teeth and gingiva: dentition normal Throat: Yes posterior oropharynx normal and Yes tonsils normal (no TP congestion) Eyes Eyelids: Yes eyelids normal Conjunctivae: conjunctivae normal Pupils: Equal, round and reactive pupils present EOM: EOMs intact bilaterally Neck Neck: Yes no lymphadenopathy and Yes supple Thyroid: Thyroid normal Resp Auscultation: clear to auscultation bilaterally, no rales and no wheezes Cardio Rate: regular rate Rhythm: regular rhythm Heart sounds: no murmurs GI Palpation (GI): Soft to palpation, nontender and No hepatosplenomegaly present Auscultation: normal bowel sounds General: Yes no CVA tenderness Back/Spine/Pelvis Back: no CVA tenderness Thoracic/Lumbar Spine: thoracic and lumbar spine normal to inspection Skin Lesions: no lesions Rashes: no rashes Neuro General: patient oriented x3, moves all extremities, no focal motor deficits and CN's II-XI intact bilaterally Cranial nerves: Yes Equal, round and reactive pupils present Cognition (Neuro): normal cognition Gait exam (Neuro): Normal gait present Extrem General: Yes no clubbing, cyanosis or edema Coding Level of Care Code Est Pt Prev Care 40-64y(73592) Diagnoses Annual physical exam Z00.00 Pure hypercholesterolemia E78.00 Osteoarthritis of right shoulder, unspecified osteoarthritis type M19.011 Osteoarthritis type: unspecified Anxiety F41.9 Obesity (BMI 30-39.9) E66.9 Assessment & Plan Assessment & Plan (1) Annual physical exam: Code(s): Z00.00 - Encounter for general adult medical examination without abnormal findings Category: Medical Plan: Check labs He is up-to-date with his colon cancer screening - is not due for repeat colonoscopy until 2025 (2) Pure hypercholesterolemia: Code(s): E78.00 - Pure hypercholesterolemia, unspecified Category: Medical Plan: Reinforced low cholesterol diet He is reminded that his cholesterol levels were elevated, with his total cholesterol at 232 mg/dl and LDL cholesterol at 177 mg/dl when they were last checked in July 2021 (he did not get his labs done when they were ordered last year), and that he should work on getting these lower if he wants to continue to avoid having to take medications to help lower his cholesterol levels Will recheck his fasting lipids [facility] for follow up (3) Osteoarthritis of right shoulder: Code(s): M19.011 - Primary osteoarthritis, right shoulder Category: Medical Qualifiers: Osteoarthritis type: unspecified Qualified Code(s): M19.011 - Primary osteoarthritis, right shoulder Plan: X-rays of the right shoulder done in July 2020 showed (+) mild AC joint arthritis Continue Acetaminophen ER 650 mg Q 8 hours PRN - states that his shoulder has not been bothering him too much lately Follow up with orthopedics as scheduled or as needed (4) Anxiety: Code(s): F41.9 - Anxiety disorder, unspecified Category: Medical Plan: Continue Lorazepam 0.5 mg QD PRN - Rx refilled (5) Obesity (BMI 30-39.9): Code(s): E66.9 - Obesity, unspecified Category: Medical Plan: Reinforced diet/exercise as tolerated/lose weight - he has gained about 12 pounds since his last visit Plan To return in 1 year for his next annual physical examination Orders: Orders Complete Blood Count Auto Diff Today D64.9 - Anemia, unspecified, Z00.00 - Encounter for general adult medical examination without abnormal findings Lipid Panel Today E78.00 - Pure hypercholesterolemia, unspecified, Z00.00 - Encounter for general adult medical examination without abnormal findings Vitamin D 25-OH Total Today E55.9 - Vitamin D deficiency, unspecified, Z00.00 - Encounter for general adult medical examination without abnormal findings Hemoglobin A1c Today R73.9 - Hyperglycemia, unspecified, Z00.00 - Encounter for general adult medical examination without abnormal findings Comprehensive [place]. Panel Fast Today E78.00 - Pure hypercholesterolemia, unspecified, Z00.00 - Encounter for general adult medical examination without abnormal findings TSH reflex Free T4 Today E78.00 - Pure hypercholesterolemia, unspecified, Z00.00 - Encounter for general adult medical examination without abnormal findings UA CC w/rflx Micro + Cult Today R30.0 - Dysuria, Z00.00 - Encounter for general adult medical examination without abnormal findings Prostate Specific Antigen Today N40.0 - Benign prostatic hyperplasia without lower urinary tract symptoms, Z00.00 - Encounter for general adult medical examination without abnormal findings Medications: Refilled lorazepam 0.5 mg PO DAILY 30 days PRN 30 tabs 1RF anxiety F41.9 - Anxiety disorder, unspecified
== END 2024-05-30 18:11 | disposition home or self-care (01) ==
LOC: HO.HMCH 17:27
PROVIDERS: PCP Internal Medicine; Visit Provider Internal Medicine
DX: Z00.00 Encounter for general adult medical examination without abnormal findings (principal); E78.00 Pure hypercholesterolemia, unspecified; E66.9 Obesity, unspecified; Z68.30 Body mass index [BMI] 30.0-30.9, adult; M19.011 Primary osteoarthritis, right shoulder; F41.9 Anxiety disorder, unspecified

== ENCOUNTER 2024-06-16 08:05 | Outpatient (REF) | payer OTHER, SELFPAY ==
[2024-06-16 09:56] LABS: MANUAL DIFF FLAG NO
[2024-06-16 10:05] LABS: Basophils Absolute Auto 0.1 X10*3/uL (0.0-0.2); Eosinophils Absolute Auto 0.1 X10*3/uL (0.0-0.4); Eosinophils Percent Auto 1.7 % (0-4); Hematocrit 42.5 % (42.0-52.0); Hemoglobin 14.8 g/dl (14.0-18.0); Imm Gran Abs Auto 0.01 X10*3/uL (0.00-0.03); Imm Gran Pct Auto 0.2 % (0.0-0.4); Lymphocytes Absolute Auto 2.2 X10*3/uL (1.2-4.9); Lymphocytes Percent Auto 38.4 % (20-40); Mean Corpuscular HGB Conc 34.8 g/dl (31.0-36.0); Mean Corpuscular Hemoglobin 30.5 pg (27.0-33.0); Mean Corpuscular Volume 87.4 fL (80.0-98.0); Mean Platelet Volume 9.2 fL (9.4-12.4); Monocytes Absolute Auto 0.4 X10*3/uL (0.1-1.2); Monocytes Percent Auto 6.9 % (2-11); Neutrophils Percent Auto 51.8 % (45-73); Platelet Count 234 X10*3/uL (160-400); Red Blood Count 4.86 X10*6/uL (4.60-5.80); Red Cell Distribution Width 11.9 % (11.0-16.0); White Blood Count 5.8 X10*3/uL (4.8-10.8)
[2024-06-16 10:10] LABS: Estimated Average Glucose 103 mg/dL; Hemoglobin A1C 130.3034 umol/L; Hemoglobin A1c % 5.2 % (<6.0); Total Hemoglobin (HGBA1C) 3868.6213 umol/L
[2024-06-16 10:13] LABS: Appearance Urine Clear; Color Urine Yellow; Glucose Urine UA Negative (Negative); Leukocyte Esterase Urine Negative (Negative); Nitrite Urine Negative (Negative); Urine Blood Negative (Negative); Urine Ketones Negative (Negative); Urine Protein Negative (Neg-Trace)
[2024-06-16 10:24] LABS: Alanine Aminotransferase 32 U/L (0-40); Albumin Level 4.5 g/dL (3.5-5.0); Alkaline Phosphatase 93 U/L (39-117); Anion Gap 12 (12-20); Aspartate Amino Transferase 31 U/L (5-37); Bilirubin Total 0.9 mg/dL (0.0-1.0); Blood Urea Nitrogen 14 mg/dL (9-16); Calcium 9.6 mg/dL (8.4-10.2); Carbon Dioxide 26 mmol/L (22-29); Chloride 106 mmol/L (96-108); Cholesterol 193 mg/dL (<200); Estimated Glomerular Filt Rate > 60; Glucose Fasting 109 mg/dL (60-99); HDL Cholesterol 42 mg/dL (>40); LDL Cholesterol Calculated 139 mg/dL (<100); Potassium 4.2 mmol/L (3.3-5.1); Sodium 140 mmol/L (135-145); Total Protein 6.9 g/dL (6.5-8.0); Triglycerides 60 mg/dL (<150)
[2024-06-16 10:46] LABS: TSH reflex Free T4 1.29 uIU/mL (0.32-4.0); Vitamin D 25-OH Total 40.6 ng/mL (>30)
== END 2024-06-16 08:06 | disposition home or self-care (01) ==
LOC: HO.HMGCLDS 08:05
PROVIDERS: PCP Internal Medicine; Visit Provider Internal Medicine
DX: Z00.00 Encounter for general adult medical examination without abnormal findings (principal); E78.00 Pure hypercholesterolemia, unspecified; E55.9 Vitamin D deficiency, unspecified; R73.9 Hyperglycemia, unspecified; N40.0 Benign prostatic hyperplasia without lower urinary tract symptoms; D64.9 Anemia, unspecified; R30.0 Dysuria; Z12.5 Encounter for screening for malignant neoplasm of prostate
CPT/HCPCS: 36415; 80053; 80061; 81003; 82306; 83036; 84153; 84443; 85025

== ENCOUNTER 2024-10-03 08:17 | Outpatient (AMB) | payer OTHER, SELFPAY ==
--- NOTE | 2024-10-03 08:19 | A.OFFPC_ITS ---
Vital Signs 10/03/24 08:21 10/03/24 08:59 Height 5 ft 8 in Weight 205 lb 6 oz BMI 31.2 BP 142/90 H 122/84 Blood Pressure Location Lt brachial Lt brachial Position Sitting Sitting Pulse 85 Pulse Source Pulse Oximeter Temp 97.3 F Temp Source Temporal Artery Scan Pulse Oximetry (%) 98 Oxygen Delivery Method Room Air Intake Visit Reasons: Depression Intake Note: Patient is here to follow up on Depression. 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 per policy Accompanied by: Self / Same As Patient Allergies NSAIDS (Non-Steroidal Anti-Inflamma Allergy (Intermediate, Verified 10/03/24 08:20) rectal bleed/GI upset fluoxetine Adverse Reaction (Intermediate, Verified 10/03/24 08:20) Headache Medication List - Last Reconciled 10/03/24 by Carly Moralez PA-C acetaminophen ER 650 mg PO Q8H PRN lorazepam 0.5 mg PO DAILY PRN 30 days Tobacco use date assessed: 10/03/24 Dental Screening Dental Screen Date: 10/03/24 Did you have a dental visit in the last 12 months?: Yes Did you have a dental problem in the last 6 months where you did not have access to dental care?: No Was dental information given to patient?: Patient has dentist HPI Depression HPI Details 59-year-old male with past medical histo ry obesity, anxiety, hypercholesterolemia, depression last seen 05/[address] Mckeon coming in for follow up. Presenting with depression and potential ADHD symptoms. He expresses prolonged depressive episodes not adequately managed by previous SSRIs due to inefficacy and side effects. Previous treatments included fluoxetine and sertraline, which he discontinued. Symptoms consistent with ADHD have been self-identified, including impulsivity resulting in injuries. High cholesterol has been noted, with levels improving due to dietary adjustments though still above goal. Denies other significant systemic symptoms or concerns. [facility] Medical History Mild depression Pure hypercholesterolemia Lipoma of abdominal wall Obesity (BMI 30-39.9) Anxiety Osteoarthritis of right shoulder Reversal of sterilization Instability of right shoulder joint Surgical History History of open reduction and internal fixation (ORIF) procedure History of esophagogastroduodenoscopy (EGD) H/O colonoscopy History of vasectomy Family History Other Family history non-contributory Social History Household Members: Spouse Housing: House Alcohol intake: never Patient Tobacco Use Status: Never used Tobacco e-Cigarette/Vaping Use: Never Used Second Hand Smoke Exposure: No service: Yes Current occupational status: employed Current occupation: self employed/rt hand Cognitive needs: No Hearing needs: Yes (hearingaid ) Vision needs: Yes (glasses) Questionnaire PHQ-9 Over the last 2 weeks, how often have you been bothered by any of the following problems? 1. Little interest or pleasure in doing things: more than half the days 2. Feeling down, depressed, or hopeless: nearly every day 3. Trouble falling or staying asleep, or sleeping too much: nearly every day 4. Feeling tired or having little energy: more than half the days 5. Poor appetite or overeating: more than half the days 6. Feeling bad about yourself - or that you are a failure or have let yourself or your family down: more than half the days 7. Trouble concentrating on things, such as reading the newspaper or watching television: nearly every day 8. Moving or speaking so slowly that other people could have noticed. Or the opposite - being so fidgety or restless that you have been moving around a lot more than usual: more than half the days 9. Thoughts that you would be better off or of hurting yourself in some way: several days Total score: 20 Depression Screening Interpretation: Positive Depression Screening Follow-up: Existing condition and New Medication prescribed Depression Screening Done: Yes Source: Developed by Drs. Connor Starr, Radhika Wilde, Vidal Silva and colleagues, with an educational syed from [employer]. Thrive Questionnaire Date Thrive assessed: 10/03/24 AUDIT C Alcohol Use Questionnaire (AUDIT-C) 1. How often do you have a drink containing alcohol?: Never Total Score: 0 DOREEN-7 AMB Questionnaire DOREEN-7 Date DOREEN - 7 assessed: 10/03/24 (pt taking medication; lorazepam PRN) Feeling nervous, anxious, or on edge: 2 = More than half the days Not being able to stop or control worryin = More than half the days Worrying too much about different things: 2 = More than half the days Trouble relaxin = Nearly every day Being so restless that it is hard to sit still: 3 = Nearly every day Becoming easily annoyed or irritable: 3 = Nearly every day Feeling afraid as if something awful might happen: 2 = More than half the days Total DOREEN-7 score (0-4 normal; 5-9 mild; 10-14 moderate; 15-21 severe): 17 Source: Developed by Drs. Connor Starr, Radhika Wilde, Vidal Silva and colleagues, with an educational syed from [employer]. Review of Systems Const Denies body aches, Denies chills, Denies fever(s), Denies headache(s) and Denies poor appetite Eyes Reports no additional complaints ENT Denies dizziness and Denies headache(s) Card Denies chest pain, Denies syncope, Denies edema, Denies irregular heart rhythm, Denies lightheadedness and Denies dyspnea Resp Denies cough and Denies dyspnea GI Denies abdominal pain, Denies constipation, Denies diarrhea, Denies nausea and Denies vomiting Reports no additional complaints Musc Reports no additional complaints and Denies abnormal gait Skin/Breast Reports system reviewed and no additional complaints, except as documented Neuro Denies abnormal gait, Denies dizziness, Denies syncope and Denies headache(s) Psych Reports no additional complaints Physical exam (Primary Care) Vital Signs: Last Vital Signs Temp 97.3 F 10/03/24 08:21 Pulse 85 10/03/24 08:21 BP 142/90 H 10/03/24 08:21 Pulse Ox 98 10/03/24 08:21 Oxygen Delivery Method Room Air 10/03/24 08:21 BMI result Body Mass Index 31.2 Tobacco/Smoking Status: Tobacco use Status Tobacco use date assessed 10/03/24 10/03/24 08:28 Patient Tobacco Use Status Never used Tobacco 10/03/24 08:28 Tobacco use type 05/27/23 14:20 e-Cigarette/Vaping Use Never Used 10/03/24 08:28 PHQ-9: PHQ-9 Score PHQ-9: Total score 20 10/03/24 08:28 Depression Screening Interpretation: Positive Depression Screening Follow-up: Existing condition and New Medication prescribed Thrive Assessment: Date of Thrive Assessment Date Thrive assessed 10/03/24 10/03/24 08:28 Const General: cooperative, healthy appearing, comfortable and no acute distress Orientation/consciousness: patient oriented x3 HENMT Head: Yes normocephalic Ears: hearing grossly normal bilaterally General nose exam: Normal external nose present Eyes General: appearance normal, both eyes and all related structures Conjunctivae: conjunctivae normal Neck Neck: Yes full ROM and Yes no lymphadenopathy Resp Effort & Inspection: normal respiratory effort Auscultation: clear to auscultation bilaterally, no crackles, no rales, no rhonchi and no wheezes Cardio Rate: regular rate Rhythm: regular rhythm Skin General skin exam: no rashes or lesions noted Neuro General: patient oriented x3 Gait exam (Neuro): Normal gait present Extrem General: Yes normal to inspection, Yes full ROM and No edema Psych Affect: normal affect Attitude: cooperative Insight: Good insight present (Psych) Judgement: Good judgement present (Psych) Coding Level of Care Code Est Pt Level 3 (98593) Diagnoses Mild depression F32.A Pure hypercholesterolemia E78.00 Overweight (BMI 25.0-29.9) E66.3 Generalized anxiety disorder F41.1 Difficulty concentrating R41.840 Assessment & Plan Assessment & Plan (1) Mild depression: Code(s): F32.A - Depression, unspecified Category: Medical Plan: The patient is to commence treatment with citalopram for depression, starting at 10 mg with a future possibility to titrate as needed, assessing for any side effects or lack of efficacy. A follow-up appointment is scheduled for two months to reassess mental health status and medication efficacy. Discussed with the patient possible side effects of this medication and when to present for re- evaluation (2) Pure hypercholesterolemia: Code(s): E78.00 - Pure hypercholesterolemia, unspecified Category: Medical Plan: Avoid foods that are high in cholesterol such as red meat, fried foods, eggs and baked goods. Triglyceride goal of less than 150 and LDL goal of less than 130. Not currently on medical management. Last LDL 139 discussed with patient lifestyle modification plan to repeat in 2 months at next visit. (3) Overweight (BMI 25.0-29.9): Code(s): E66.3 - Overweight Category: Medical Plan: Healthy diet and regular exercise is encouraged. (4) Generalized anxiety disorder: Code(s): F41.1 - Generalized anxiety disorder Category: Medical Plan: Patient on lorazepam 0.5 mg daily. Referral was placed to neuropsych at his last visit. (5) Difficulty concentrating: Code(s): R41.840 - Attention and concentration deficit Category: Medical Plan: A referral for a comprehensive [facility] evaluation [facility] is processed. Plan This note was constructed using voice recognition software. While every effort has been made to ensure accuracy and cell room supervisor, still areas may have been included sometimes these areas may affect the content or meeting of the given symptoms. Total time spent caring for the patient today was 20 minutes. This includes time spent before the visit reviewing the chart, time spent during the visit, and time spent after the visit and documentation. Patient was informed and verbally consented to the use of an ambient scribe for clinic note documentation during this visit. Orders: Orders Lipid Panel Today E78.00 - Pure hypercholesterolemia, unspecified Referrals Psychiatry Outpatient Consultation Service R41.840 - Attention and concentration deficit Medications: New citalopram 10 mg PO DAILY 90 tabs 0RF
[2024-10-03 08:21] VITALS: BP 142/90; PULSE 85; TEMP 36.3; O2SAT 98; BMI 31.2
--- OUTSIDE RECORDS SUMMARY | 2024-10-03 08:24 | XMS_ITS | Patient Health Record ---
Author Organization [facility] Address [address] [place] [address] Care Team Providers Care Processing Archivist Name Role Phone Shai Mckeon MDneth Primary Care Provider Connor Bradford Unavailable [phone] Reason For Referral No Information Medications Medication SIG (Take, Route, Frequency, Duration) Notes Start Date End Date Status Tylenol Arthritis Pain Not-Taking LORazepam Not-Taking Immunizations Vaccine Route Administration Date Status Comme nts Influenza Unknown 03/27/2020 Administered Social History Tobacco Use: Social History Observation Description Date Details (start date - stop date) Never Smoker NA - NA Tobacco Use/Smoking Question Answer Notes Patient is a nonsmoker Alcohol Screen Question Answer Notes Did you have a drink containing alcohol in the p ast year? No Points 0 Interpretation Negative Section Notes: Nonsmoker; no alcohol Problems Problem Type SNOMED Code ICD Code Onset Dates Problem Status W/U Status Risk Notes Problem 809936145765287 Preprocedural examination (Z01.818) Active confirmed Problem 626956267 History of colon polyps (Z86.010) Active confirmed Problem 714292718 Family history o f colon cancer (Z80.0) Active confirmed Problem Diverticulosis of colon (086539208) Diverticulosis of colon (K57.30) Active confirmed Plan Of Treatment Pending Test Test Name Order Date Pathology 05/10/2021 Future Test Test Name Order Date COLONOSCOPY 03/26/2021 Insurance Providers Payer Name Payer Address Payer Phone Subscriber Number Group Number Insured Name Patient Relationship to Insured Coverage Start Date Coverage End Date [facility] [employer] [facility] [address] [address] [place], [place] [id number] JOHN DAVENPORT Self - patient is the insured MEDICAID OF [employer] [address] [place] [phone] [phone] [id number] JOHN DAVENPORT Self - patient is the insured Medical (General) History Medical History History ICD Code Denies [place],DM,CVA,Lung disease,renal dise ase Hay fever Neg. colonoscpy in his 40's and then polyps removed at age 50--with Dr. Sanderson Occasional anxiety Surgical History Surgery Date(Month/Year) Broken bones/digits--has a landon in his ri t lower leg
[2024-10-03 08:59] VITALS: BP 122/84
== END 2024-10-03 08:58 | disposition home or self-care (01) ==
PROVIDERS: PCP Internal Medicine
DX: F32.A Depression, unspecified (principal); E78.00 Pure hypercholesterolemia, unspecified; E66.3 Overweight; F41.1 Generalized anxiety disorder; R41.840 Attention and concentration deficit

== ENCOUNTER → 2024-10-03 08:17 | Outpatient (BNVA) | payer OTHER, SELFPAY | PROVIDERS: PCP Internal Medicine | DX: F32.A Depression, unspecified (principal); E78.00 Pure hypercholesterolemia, unspecified; E66.3 Overweight; F41.1 Generalized anxiety disorder; R41.840 Attention and concentration deficit | CPT/HCPCS: 99212 ==

== ENCOUNTER 2024-12-06 08:10 | Outpatient (AMB) | payer OTHER, SELFPAY ==
--- OUTSIDE RECORDS SUMMARY | 2024-12-06 08:14 | XMS_ITS | Patient Health Record ---
Author Organization [facility] Address [address] [place] [address] Care Team Providers Care Boom Stick Man Name Role Phone Shai Mckeon MDneth Primary Care Provider Connor Bradford Unavailable [phone] Reason For Referral No Information Medications Medication [...] Problem Status W/U Status Risk Notes Problem [id number] Preprocedural examination (Z01.818) Active confirmed Problem 972135502 History of colon polyps (Z86.010) Active confirmed Problem 170911322 Family history o f colon cancer (Z80.0) Active confirmed Problem Diverticulosis o f colon (K57.30) Active confirmed Plan Of Treatment Pending Test Test Name Order Date Pathology 05/10/2021 Future Test Test Name Order Date COLONOSCOPY 03/26/2021 Insurance Providers Payer Name Payer Address Payer Phone Subscriber Number Group Number Insured Name Patient Relationship to Insured Coverage Start Date Coverage End Date [facility] [employer] [facility] [address] [address] [place], [place] [phone] [id number] JOHN DAVENPORT Self - patient is the insured MEDICAID OF [facility] [address] [place] [address] [id number] JOHN DAVENPORT Self - patient is the insured Medical (General) History Medical History History ICD Code Denies [place],DM,CVA,Lung disease,renal dise ase Hay fever Neg. colonoscpy in his 40's and then polyps removed at age 50--with Dr. Sanderson Occasional anxiety Surgical History Surgery Date(Month/Year) Broken bones/digits--has a landon in his ri ght lower leg
[2024-12-06 08:17] VITALS: BP 116/76; PULSE 67; RESP 18; TEMP 36.3; O2SAT 99; BMI 31.1
--- NOTE | 2024-12-06 08:17 | MHC.PC.OV ---
Vital Signs 12/06/24 08:17 Height 5 ft 8 in Weight 204 lb 6.4 oz BMI 31.1 BP 116/76 Blood Pressure Location Lt brachial Position Sitting Respiration 18 Pulse 67 Pulse Source Pulse Oximeter Temp 97.3 F Temp Source Temporal Artery Scan Pulse Oximetry (%) 99 Oxygen Delivery Method Room Air Intake Visit Reasons: f/u depression and HLD Sexual Assault Response Coordinator Required: No Accompanied by: Self / Same As Patient Allergies NSAIDS (Non-Steroidal Anti-Inflamma Allergy (Intermediate, Verified 12/06/24 08:44) rectal bleed/GI upset fluoxetine Adverse Reaction (Intermediate, Verified 12/06/24 08:44) Headache Medication List - Last Reconciled 12/06/24 by Carly Moralez PA-C acetaminophen ER 650 mg PO Q8H PRN lorazepam 0.5 mg PO DAILY PRN 30 days venlafaxine 37.5 mg PO DAILY Tobacco use date assessed: 12/06/24 Dental Screening Dental Screen Date: 12/06/24 Did you have a dental visit in the last 12 months?: No Did you have a dental problem in the last 6 months where you did not have access to dental care?: No Was dental information given to patient?: Patient has dentist HPI f/u depression and HLD HPI Details 59-year-old male with past medical history obesity, anxiety, hypercholesterolemia, depression last seen 09/2024 coming in for follow up. At his last visit patient was started on citalopram but did have symptoms with this medication and was switched to venlafaxine. Presenting for medication management related to generalized anxiety disorder and depressive disorder. Notably, the patient has experienced improvement with Citalopram in the past, but was transitioned to Venlafaxine starting at a low dose. Symptoms of fatigue have been noted, primarily in the post-morning period. Other reported side effects include sporadic mild headaches and increased fluid intake, resulting in nocturnal interruptions. The patient remains committed to Venlafaxine treatment, contemplating on dosing increment to further alleviate symptoms, while remaining vigilant on emergent side effects. [facility] Medical History Mild depression Pure hypercholesterolemia Lipoma of abdominal wall Obesity (BMI 30-39.9) Anxiety Osteoarthritis of right shoulder Reversal of sterilization Instability of right shoulder joint Surgical History History of open reduction and internal fixation (ORIF) procedure History of esophagogastroduodenoscopy (EGD) H/O colonoscopy History of vasectomy Family History Other Family history non-contributory Social History Household Members: Spouse Housing: House Alcohol intake: never Patient Tobacco Use Status: Never used Tobacco e-Cigarette/Vaping Use: Never Used Second Hand Smoke Exposure: No service: Yes Current occupational status: employed Current occupation: self employed/rt hand Cognitive needs: No Hearing needs: Yes (hearingaid ) Vision needs: Yes (glasses) Questionnaire PHQ-9 Over the last 2 weeks, how often have you been bothered by any of the following problems? 1. Little interest or pleasure in doing things: several days 2. Feeling down, depressed, or hopeless: several days 3. Trouble falling or staying asleep, or sleeping too much: several days 4. Feeling tired or having little energy: several days 5. Poor appetite or overeating: not at all 6. Feeling bad about yourself - or that you are a failure or have let yourself or your family down: not at all 7. Trouble concentrating on things, such as reading the newspaper or watching television: not at all 8. Moving or speaking so slowly that other people could have noticed. Or the opposite - being so fidgety or restless that you have been moving around a lot more than usual: not at all 9. Thoughts that you would be better off or of hurting yourself in some way: not at all Total score: 4 Depression Screening Interpretation: Positive Depression Screening Done: Yes 73001 - PHQ-9 Billing: Yes Source: Developed by Drs. Cnonor Starr, Radhika Wilde, Vidal Silva and colleagues, with an educational syed from [employer]. Thrive Questionnaire Date Thrive assessed: 12/06/24 I am a: Patient What is your living situation today?: I have a steady place to live Within the past 12 months, did the food you bought not last and you didn't have the money to get more?: Never true Within the past 12 months, did you worry whether your food would run out before you got money to buy more?: Never true Do you have trouble paying for medicines?: No Do you have trouble getting transportation to medical appointments?: No Do you have trouble paying your heating and electricity bill?: No Do you have trouble taking care of your child, family member or friend?: No Do you have trouble with day-to-day activities such as bathing, preparing meals, shopping, managing finances, etc.?: No Are you currently unemployed and looking for a job?: No Are you interested in more education?: No Please select the resources that you would like help with: None Currently or been in a relationship where the following occur: No concerns reported THRIVE Score: 0 AUDIT C Alcohol Use Questionnaire (AUDIT-C) 1. How often do you have a drink containing alcohol?: Never Total Score: 0 Score Reviewed/Action Taken: No DOREEN-7 AMB Questionnaire DOREEN-7 Date DOREEN - 7 assessed: 12/06/24 (pt taking medication; lorazepam PRN) Feeling nervous, anxious, or on edge: 1 = Several days Not being able to stop or control worryin = Several days Worrying too much about different things: 1 = Several days Trouble relaxin = Several days Being so restless that it is hard to sit still: 1 = Several days Becoming easily annoyed or irritable: 0 = Not at all Feeling afraid as if something awful might happen: 0 = Not at all Total DOREEN-7 score (0-4 normal; 5-9 mild; 10-14 moderate; 15-21 severe): 5 Source: Developed by Drs. Connor Starr, Radhika Wilde, Vidal Silva and colleagues, with an educational syed from [employer]. DOREEN-7 Assessment Billing DOREEN-7 Assessment Tool: DOREEN-7 Assessment 67650 Review of Systems Const Denies body aches, Denies chills, Denies fever(s), Denies headache(s) and Denies poor appetite Eyes Reports no additional complaints ENT Denies dysphagia, Denies dizziness, Denies headache(s) and Denies odynophagia Card Denies chest pain, Denies syncope, Denies edema, Denies irregular heart rhythm, Denies lightheadedness and Denies dyspnea Resp Denies cough and Denies dyspnea GI Denies abdominal pain, Denies constipation, Denies dysphagia, Denies diarrhea, Denies nausea, Denies odynophagia and Denies vomiting Reports no additional complaints Musc Reports no additional complaints and Denies abnormal gait Skin/Breast Reports system reviewed and no additional complaints, except as documented Neuro Denies abnormal gait, Denies dizziness, Denies syncope and Denies headache(s) Psych Reports no additional complaints Physical exam (Primary Care) Vital Signs: Last Vital Signs Temp 97.3 F 12/06/24 08:17 Pulse 67 12/06/24 08:17 Resp 18 12/06/24 08:17 BP 116/76 12/06/24 08:17 Pulse Ox 99 12/06/24 08:17 Oxygen Delivery Method Room Air 12/06/24 08:17 BMI result Body Mass Index 31.1 Tobacco/Smoking Status: Tobacco use Status Tobacco use date assessed 12/06/24 12/06/24 08:24 Patient Tobacco Use Status Never used Tobacco 12/06/24 08:24 Tobacco use type 05/27/23 14:20 e-Cigarette/Vaping Use Never Used 12/06/24 08:24 PHQ-9: PHQ-9 Score PHQ-9: Total score 4 12/06/24 08:24 Depression Screening Interpretation: Positive Thrive Assessment: Date of Thrive Assessment Date Thrive assessed 12/06/24 12/06/24 08:24 Currently or been in a relationship where the following occur: No concerns reported Const General: cooperative, healthy appearing, comfortable and no acute distress Orientation/consciousness: patient oriented x3 [facility] Head: Yes normocephalic Ears: hearing grossly normal bilaterally General nose exam: Normal external nose present Eyes General: appearance normal, both eyes and all related structures Conjunctivae: conjunctivae normal Neck Neck: Yes full ROM and Yes no lymphadenopathy Resp Effort & Inspection: normal respiratory effort Auscultation: clear to auscultation bilaterally, no crackles, no rales, no rhonchi and no wheezes Cardio Rate: regular rate Rhythm: regular rhythm Skin General skin exam: no rashes or lesions noted Neuro General: patient oriented x3 Gait exam (Neuro): Normal gait present Extrem General: Yes normal to inspection, Yes full ROM and No edema Psych Affect: normal affect Attitude: cooperative Insight: Good insight present (Psych) Judgement: Good judgement present (Psych) Coding Level of Care Code Est Pt Level 3 (63893) Diagnoses Mild depression F32.A Pure hypercholesterolemia E78.00 Overweight (BMI 25.0-29.9) E66.3 Generalized anxiety disorder F41.1 Difficulty concentrating R41.840 Additional Codes DOREEN-7 Assessment Billing - DOREEN-7 Assessment Tool: DOREEN-7 Assessment 74965 ([id number]) PHQ-9 - 98695 - PHQ-9 Billing: Yes ([id number]) Assessment & Plan Assessment & Plan (1) Mild depression: Code(s): F32.A - Depression, unspecified Category: Medical Plan: Patient feels the venlafaxine has been beneficial but would like to increase the dose at this time. He is having mild side effects but feels they are tolerable and would like to continue to increase this time. Plan to follow up in 4 weeks or sooner if needed. (2) Pure hypercholesterolemia: Code(s): E78.00 - Pure hypercholesterolemia, unspecified Category: Medical Plan: Avoid foods that are high in cholesterol such as red meat, fried foods, eggs and baked goods. Triglyceride goal of less than 150 and LDL goal of less than 130. Not currently on medical management. Reminded about blood work. (3) Overweight (BMI 25.0-29.9): Code(s): E66.3 - Overweight Category: Medical Plan: Healthy diet and regular exercise is encouraged. (4) Generalized anxiety disorder: Code(s): F41.1 - Generalized anxiety disorder Category: Medical Plan: Patient on lorazepam 0.5 mg daily. Referral was placed to neuropsych with Dr. Cordero. (5) Difficulty concentrating: Code(s): R41.840 - Attention and concentration deficit Category: Medical Plan: A referral for a comprehensive ADHD evaluation at the [place] outpatient [facility] is processed. Plan The management for generalized anxiety disorder and depressive disorder includes augmenting the Venlafaxine dosage to 50 mg, with dosing adjustment to bedtime to address fatigue. A telehealth follow-up in four weeks is established to review the medication's impact and any emergent side effects. Conversely, the patient will complete pending blood tests as workload pressures permit, achieving a balance between therapeutic benefits and side-effect profile requires further diligence. Continuous assessment of heart complaints is crucial, and present headaches are acknowledged as a manageable side effect in light of the overall therapeutic benefit. This note was constructed using voice recognition software. While every effort has been made to ensure accuracy and assembler arranger, still areas may have been included sometimes these areas may affect the content or meeting of the given symptoms. Total time spent caring for the patient today was 20 minutes. This includes time spent before the visit reviewing the chart, time spent during the visit, and time spent after the visit and documentation. Patient was informed and verbally consented to the use of an ambient scribe for clinic note documentation during this visit. Medications: New venlafaxine 50 mg PO DAILY 30 tabs 0RF Discontinued venlafaxine Discontinued Reason: Patient no longer taking 37.5 mg PO DAILY 30 tabs 1RF
== END 2024-12-06 08:58 | disposition home or self-care (01) ==
LOC: HO.HMCH 08:11
PROVIDERS: PCP Internal Medicine
DX: F32.A Depression, unspecified (principal); E78.00 Pure hypercholesterolemia, unspecified; E66.3 Overweight; F41.1 Generalized anxiety disorder; R41.840 Attention and concentration deficit

== ENCOUNTER → 2024-12-06 08:10 | Outpatient (BNVA) | payer OTHER, SELFPAY | PROVIDERS: PCP Internal Medicine | DX: F32.A Depression, unspecified (principal); E78.00 Pure hypercholesterolemia, unspecified; E66.3 Overweight; Z68.31 Body mass index [BMI] 31.0-31.9, adult; F41.1 Generalized anxiety disorder; R41.840 Attention and concentration deficit; Z79.899 Other long term (current) drug therapy | CPT/HCPCS: 96127; 99212 ==

== ENCOUNTER → 2025-01-03 09:08 | Outpatient (BNVA) | payer OTHER, SELFPAY | PROVIDERS: PCP Internal Medicine | DX: Z13.89 Encounter for screening for other disorder (principal) ==

== ENCOUNTER 2025-06-12 17:21 | Outpatient (AMB) | payer OTHER, SELFPAY ==
--- NOTE | 2025-06-12 17:30 | A.OFFPC_ITS ---
Vital Signs 06/12/25 17:31 Height 5 ft 8 in Weight 209 lb BMI 31.8 BP 140/82 H Blood Pressure Location Lt brachial Position Sitting Pulse 78 Pulse Source Pulse Oximeter Pulse Oximetry (%) 98 Oxygen Delivery Method Room Air Intake Visit Reasons: physical Allergies NSAIDS (Non-Steroidal Anti-Inflamma Allergy (Intermediate, Verified 06/12/25 17:37) rectal bleed/GI upset fluoxetine Adverse Reaction (Intermediate, Verified 06/12/25 17:37) Headache Medication List - Last Reconciled 06/12/25 by Marcos Mckeon MD acetaminophen ER 650 mg PO Q8H PRN lorazepam 0.5 mg PO DAILY PRN 30 days venlafaxine 50 mg PO DAILY Tobacco use date assessed: 12/06/24 Dental Screening Dental Screen Date: 12/06/24 HPI physical HPI Details Patient comes in today for his annual physical examination - was last seen by me a year ago in May 2024 States that he feels okay He denies any headaches or dizziness Denies any chest pains, no SOB No nausea/vomiting, no abdominal pain No change in bowel habits noted He denies any acute urinary symptoms He has no follow up labs done recently His colonoscopy was last done wt Dr. Boateng in 2020 and he will be due for repeat colonoscopy in 5 years (2025) ON LICENSE OF [facility] Medical History (Updated 06/21/25 @ 11:39 by Marcos Mckeon MD) Depression Mild depression Pure hypercholesterolemia Lipoma of abdominal wall Obesity (BMI 30-39.9) Anxiety Osteoarthritis of right shoulder Reversal of sterilization Instability of right shoulder joint Surgical History History of open reduction and internal fixation (ORIF) procedure History of esophagogastroduodenoscopy (EGD) H/O colonoscopy History of vasectomy Family History Other Family history non-contributory Social History Household Members: Spouse Housing: House Alcohol intake: never Patient Tobacco Use Status: Never used Tobacco Tobacco use type: Cigarette e-Cigarette/Vaping Use: Never Used Second Hand Smoke Exposure: No service: Yes Current occupational status: employed Current occupation: self employed/rt hand Cognitive needs: No Hearing needs: Yes (hearingaid ) Vision needs: Yes (glasses) Questionnaire PHQ-9 Over the last 2 weeks, how often have you been bothered by any of the following problems? Depression Screening Interpretation: Negative Depression Screening Done: Yes Source: Developed by Drs. Connor Starr, Radhika Wilde, Vidal Silva and colleagues, with an educational syed from [employer]. Thrive Questionnaire Date Thrive assessed: 12/06/24 I am a: Patient What is your living situation today?: I have a steady place to live Within the past 12 months, did the food you bought not last and you didn't have the money to get more?: Never true Within the past 12 months, did you worry whether your food would run out before you got money to buy more?: Never true Do you have trouble paying for medicines?: No Do you have trouble getting transportation to medical appointments?: No Do you have trouble paying your heating and electricity bill?: No Do you have trouble taking care of your child, family member or friend?: No Do you have trouble with day-to-day activities such as bathing, preparing meals, shopping, managing finances, etc.?: No Are you currently unemployed and looking for a job?: No Are you interested in more education?: No Please select the resources that you would like help with: None Currently or been in a relationship where the following occur: No concerns reported THRIVE Score: 0 DOREEN-7 AMB Questionnaire DOREEN-7 Date DOREEN - 7 assessed: 12/06/24 Source: Developed by Drs. Connor Starr, Radhika Wilde, Vidal Silva and colleagues, with an educational syed from [employer]. Review of Systems Const Denies chills, Denies fatigue, Denies fever(s), Denies headache(s), Denies m alaise and Denies weakness Eyes Denies blurry vision, Denies change in vision, Denies irritation and Denies itchy eyes ENT Denies dysphagia, Denies dizziness, Denies otalgia, Denies headache(s), Denies nasal congestion, Denies neck pain, Denies odynophagia and Denies sore throat Card Denies rapid heart rate, Denies irregular heart rhythm, Denies palpitations and Denies dyspnea Resp Denies chest congestion, Denies cough, Denies dyspnea and Denies wheezing GI Denies abdominal pain, Denies bloating, Denies constipation, Denies dysphagia, Denies heartburn, Denies diarrhea, Denies nausea, Denies odynophagia and Denies vomiting Denies hematuria, Denies difficulty urinating, Denies dysuria, Denies urinary frequency and Denies urinary urgency Musc Denies back pain, Denies arthralgias, Denies joint swelling, Denies muscle weakness and Denies neck pain Skin/Breast Denies change in pigmentation, Denies lesions, Denies rash and Denies unusual bruising Neuro Denies dizziness, Denies headache(s), Denies paresthesias and Denies weakness Endo Denies fatigue and Denies palpitations Aller/Immun Denies itchy eyes and Denies wheezing Physical exam (Primary Care) Vital Signs: Last Vital Signs Pulse 78 06/12/25 17:31 BP 140/82 H 06/12/25 17:31 Pulse Ox 98 06/12/25 17:31 Oxygen Delivery Method Room Air 06/12/25 17:31 BMI result Body Mass Index 31.8 Tobacco/Smoking Status: Tobacco use Status Tobacco use date assessed 12/06/24 06/12/25 17:36 Patient Tobacco Use Status Never used Tobacco 06/12/25 17:36 Tobacco use type Cigarette 06/12/25 17:36 e-Cigarette/Vaping Use Never Used 06/12/25 17:36 Depression Screening Interpretation: Negative Thrive Assessment: Date of Thrive Assessment Date Thrive assessed 12/06/24 06/12/25 17:36 Currently or been in a relationship where the following occur: No concerns reported Const General: no acute distress, alert and awake Orientation/consciousness: patient oriented x3 HENMT Head: Yes normocephalic and Yes atraumatic Ears: external ears normal, TM's normal bilaterally and EAC's normal General nose exam: No nasal discharge present Face and sinus: Yes normal facial exam and Yes sinuses nontender Teeth and gingiva: dentition normal Throat: Yes posterior oropharynx normal and Yes tonsils normal (no TP congestion) Eyes Eyelids: Yes eyelids normal Conjunctivae: conjunctivae normal Pupils: Equal, round and reactive pupils present EOM: EOMs intact bilaterally Neck Neck: Yes no lymphadenopathy and Yes supple Thyroid: Thyroid normal Resp Auscultation: clear to auscultation bilaterally, no rales and no wheezes Cardio Rate: regular rate Rhythm: regular rhythm Heart sounds: no murmurs GI Palpation (GI): Soft to palpation, nontender and No hepatosplenomegaly present Auscultation: normal bowel sounds General: Yes no CVA tenderness Back/Spine/Pelvis Back: no CVA tenderness Thoracic/Lumbar Spine: thoracic and lumbar spine normal to inspection Skin Lesions: no lesions Rashes: no rashes Neuro General: patient oriented x3, moves all extremities, no focal motor deficits and CN's II-XI intact bilaterally Cranial nerves: Yes Equal, round and reactive pupils present Cognition (Neuro): normal cognition Gait exam (Neuro): Normal gait present Extrem General: Yes no clubbing, cyanosis or edema Coding Level of Care Code Est Pt Prev Care 40-64y(52174) Diagnoses Annual physical exam Z00. Loud snoring R06.83 Pure hypercholesterolemia E78.00 Osteoarthritis of right shoulder, unspecified osteoarthritis type M19.011 Osteoarthritis type: unspecified Anxiety F41.9 Mild episode of recurrent major depressive disorder F33.0 Depression Type: major depressive disorder Major depression recurrence: recurrent Active/Remission status: currently active Major depression episode severity: mild Obesity (BMI 30-39.9) E66.9 Assessment & Plan Assessment & Plan (1) Annual physical exam: Code(s): Z00.00 - Encounter for general adult medical examination without abnormal findings Category: Medical Plan: Check labs COLE to complete his annual exam today His colonoscopy was last done [facility] Dr. Boateng in 2020 and he will be due for repeat colonoscopy next year (2025) - 5 year recall (2) Loud snoring: Code(s): R06.83 - Snoring Category: Medical Plan: He has been advised by family members that his heavy snoring at night has gotten a lot worse lately He also reports experiencing fatigue and some daytime somnolence lately Will go ahead and refer him to Sleep Medicine for further evaluation of possible KAREN (3) Pure hypercholesterolemia: Code(s): E78.00 - Pure hypercholesterolemia, unspecified Category: Medical Plan: Reinforced low cholesterol diet He is reminded that his cholesterol levels were still elevated when they were last checked a year ago in May 2024 but they have improved from his numbers back in July 2021 Will recheck his fasting lipids COLE for follow up (4) Osteoarthritis of right shoulder: Code(s): M19.011 - Primary osteoarthritis, right shoulder Category: Medical Qualifiers: Osteoarthritis type: unspecified Qualified Code(s): M19.011 - Primary osteoarthritis, right shoulder Plan: X-rays of the right shoulder done in July 2020 showed (+) mild AC joint arthritis Continue Acetaminophen ER 650 mg Q 8 hours PRN - states that his shoulder has not been bothering him too much lately Follow up with orthopedics as scheduled or as needed (5) Anxiety: Code(s): F41.9 - Anxiety disorder, unspecified Category: Medical Plan: Continue Lorazepam 0.5 mg QD PRN (6) Depression: Code(s): F32.A - Depression, unspecified Category: Medical Qualifiers: Depression Type: major depressive disorder Major depression recurrence: recurrent Active/Remission status: currently active Major depression episode severity: mild Qualified Code(s): F33.0 - Major depressive disorder, recurrent, mild Plan: Continue Venlafaxine 50 mg QD - feels that he has been doing better since his dose was increased from 37.5 mg QD back in November 2024 (7) Obesity (BMI 30-39.9): Code(s): E66.9 - Obesity, unspecified Category: Medical Plan: Reinforced diet/exercise as tolerated/lose weight Plan Follow up in 6 months Orders: Orders Lipid Panel 06/12/25 E78.00 - Pure hypercholesterolemia, unspecified, Z00.00 - Encounter for general adult medical examination without abnormal findings Comprehensive [place]. Panel Fast 06/12/25 E78.00 - Pure hypercholesterolemia, unspecified, Z00.00 - Encounter for general adult medical examination without abnormal findings TSH reflex Free T4 06/12/25 E78.00 - Pure hypercholesterolemia, unspecified, Z00.00 - Encounter for general adult medical examination without abnormal findings Vitamin D 25-OH Total 06/12/25 E55.9 - Vitamin D deficiency, unspecified, Z00.0 0 - Encounter for general adult medical examination without abnormal findings Complete Blood Count Auto Diff 06/12/25 D64.9 - Anemia, unspecified, Z00.00 - Encounter for general adult medical examination without abnormal findings UA CC w/rflx Micro + Cult 06/12/25 R30.0 - Dysuria, Z00.00 - Encounter for general adult medical examination without abnormal findings Hemoglobin A1c 06/12/25 E11.9 - Type 2 diabetes mellitus without complications, Z00.00 - Encounter for general adult medical examination without abnormal findings Prostate Specific Antigen Scr 06/12/25 Z00.00 - Encounter for general adult medical examination without abnormal findings Referrals Sleep Medicine Referral R06.83 - Snoring, R53.83 - Other fatigue
[2025-06-12 17:31] VITALS: BP 140/82; PULSE 78; O2SAT 98; BMI 31.8
--- OUTSIDE RECORDS SUMMARY | 2025-06-13 07:35 | XMS_ITS | Patient Health Record ---
Author Organization [facility] Address [address] [place] [address] Care Team Providers Care Strategies Analyst Name Role Phone Shai Mckeon MDneth Primary Care Provider Connor Bradford Unavailable [phone] Reason For Referral No Information Medications Medication SIG (Take, Route, Frequency, Duration) Notes Start Date End Date Status Tylenol Arthritis Pain Not-Taking/PRN LORazepam Not-Taking /PRN Immunizations Vaccine Route Administration Date Status Comme nts Influenza Unknown 03/27/2020 Administered Social History Tobacco Use: Social History Observation Description Date Details (start date - stop date) Never Smoker NA - NA Social History Drugs/Alcohol: Social Info Question Answer Notes Alcohol Screen Did you have a drink containing alcohol in the past year? No Points 0 Interpretation Negative Tobacco Use: Social Info Question Answer Notes Tobacco Use/Smoking Patient is a nonsmoker Additional Details Category Social Info Options Details Miscellaneous: Marital status: Occupation: Self-employed in tree and stump removal Section Notes: Nonsmoker; no alcohol Problems Problem Type SNOMED Code ICD Code Onset Dates Problem Status W/U Status Risk Notes Problem Preprocedural examination (294829450134677) Preprocedural examination (Z01.818) Active confirmed Problem History of polyp of colon (situation) (227861160) History of colon polyps (Z86.010) Active confirmed Problem Family History of Cancer of Colon (Situation) (304515830) Family history of colon cancer (Z80.0) Active confirmed Problem Diverticulosis of colon (222050709) Diverticulosis of colon (K57.30) Active confirmed Plan Of Treatment Pending Test Test Name Order Date Pathology 05/10/2021 Future Test Test Name Order Date COLONOSCOPY 03/26/2021 Insurance Providers Payer Name Payer Address Payer Phone Subscriber Number Group Number Insured Name Patient Relationship to Insured Coverage Start Date Coverage End Date [facility] [address] [address] [place], [place] [id number] [phone] [id number] JOHN DAVENPORT Self - patient is the insured MEDICAID OF [facility] [address] [place] [address] [phone] [id number] JOHN DAVENPORT Self - patient is the insured Medical (General) History Medical History History ICD Code Denies [place],DM,CVA,Lung disease,renal dise ase Hay fever Neg. colonoscpy in his 40's and then polyps removed at age 50--with Dr. Sanderson Occasional anxiety Surgical History Surgery Date(Month/Year) Broken bones/digits--has a landon in his ri ght lower leg
== END 2025-06-12 17:50 | disposition home or self-care (01) ==
LOC: HO.HMCH 17:22
PROVIDERS: PCP Internal Medicine; Visit Provider Internal Medicine
DX: Z00.00 Encounter for general adult medical examination without abnormal findings (principal); R06.83 Snoring; E66.9 Obesity, unspecified; Z68.31 Body mass index [BMI] 31.0-31.9, adult; E78.00 Pure hypercholesterolemia, unspecified; M19.011 Primary osteoarthritis, right shoulder; F41.9 Anxiety disorder, unspecified; F33.0 Major depressive disorder, recurrent, mild

== ENCOUNTER → 2025-06-12 17:21 | Outpatient (BNVA) | payer OTHER, SELFPAY | PROVIDERS: PCP Internal Medicine; Visit Provider Internal Medicine | DX: Z00.00 Encounter for general adult medical examination without abnormal findings (principal); R06.83 Snoring; E78.00 Pure hypercholesterolemia, unspecified; M19.011 Primary osteoarthritis, right shoulder; F41.9 Anxiety disorder, unspecified; F33.0 Major depressive disorder, recurrent, mild; E66.9 Obesity, unspecified; Z68.31 Body mass index [BMI] 31.0-31.9, adult | CPT/HCPCS: 99396 ==

== ENCOUNTER 2025-07-11 08:59 | Outpatient (REF) | payer OTHER, SELFPAY ==
--- OUTSIDE RECORDS SUMMARY | 2025-07-11 10:05 | XMS_ITS | Patient Health Record ---
Author Organization [facility] Address [address] [place] [address] Care Team Providers Care Agricultural Research Engineer Name Role Phone Shai Mckeon MDneth Primary Care Provider Connor Bradford Unavailable [phone] Reason For Referral No Information Medications Medication [...] W/U Status Risk Notes Problem Preprocedural examination (844056863057052) Preprocedural examination (Z01.818) Active confirmed Problem History of polyp of colon (situation) (103538641) History of colon polyps (Z86.010) Active confirmed Problem Family History of Cancer of Colon (Situation) (957093156) Family history of colon cancer (Z80.0) Active confirmed Problem Diverticulosis of colon (268872468) Diverticulosis of colon (K57.30) Active confirmed Plan Of Treatment Pending Test Test Name Order Date Pathology 05/10/2021 Future Test Test Name Order Date COLONOSCOPY 03/26/2021 Insurance Providers Payer Name Payer Address Payer Phone Subscriber Number Group Number Insured Name Patient Relationship to Insured Coverage Start Date Coverage End Date [facility] [address] [address] [place], [place] [id number] [phone] [id number] JOHN DAVENPORT Self - patient is the insured MEDICAID OF [facility] [address] [place] [address] [phone] [id number] JOHN DAVENPORT Self - patient is the insured Medical (General) History Medical History History ICD Code Denies [place],DM,CVA,Lung disease,renal dise ase Hay fever Neg. colonoscpy in his 40's and then polyps removed at age 50--with Dr. Sanderson Occasional anxiety Surgical History Surgery Date(Month/Year) Broken bones/digits--has a landon in his ri ght lower leg
--- OUTSIDE RECORDS SUMMARY | 2025-07-11 10:05 | XMS_ITS ---
Author Organization Unknown ENCOUNTERS Encounter Performer Location Date Diagnosis Diagnosis Status Pre Admit [address] [id number] [address] [id number] [facility] *Note: Encounters from your own facility or health system may be excluded. Allergies, Adverse Reactions, Alerts Allergen Type Severity Identification Date NSAIDS (Non-Steroidal Anti-Inflamma drug allergy 3 80806523 Medications Name Date Quantity Days Supplied GPI Number
[2025-07-11 10:44] LABS: MANUAL DIFF FLAG NO
[2025-07-11 11:01] LABS: Hematocrit 44.0 % (42.0-52.0); Hemoglobin 14.8 g/dl (14.0-18.0); Imm Gran Abs Auto 0.01 X10*3/uL (0.00-0.03); Imm Gran Pct Auto 0.2 % (0.0-0.4); Lymphocytes Absolute Auto 2.1 X10*3/uL (1.2-4.9); Mean Corpuscular HGB Conc 33.6 g/dl (31.0-36.0); Mean Corpuscular Hemoglobin 30.3 pg (27.0-33.0); Mean Corpuscular Volume 90.0 fL (80.0-98.0); NRBC Abs Auto 0.000 X10*3/uL (0.0-0.012); NRBC Pct Auto 0.0 /100WBC (0.0-0.2); Platelet Count 249 X10*3/uL (160-400); Red Blood Count 4.89 X10*6/uL (4.60-5.80); White Blood Count 5.5 X10*3/uL (4.8-10.8)
[2025-07-11 11:02] LABS: Appearance Urine Turbid; Glucose Urine UA Negative (Negative); PH 5.0 (5.0-9.0); Specific Gravity - Urine >= 1.030 (1.005-1.025)
[2025-07-11 12:01] LABS: Alanine Aminotransferase 33 U/L (0-40); Albumin Level 4.7 g/dL (3.5-5.0); Alkaline Phosphatase 89 U/L (39-117); Anion Gap 9 (12-20); Aspartate Amino Transferase 30 U/L (5-37); Blood Urea Nitrogen 21 mg/dL (9-16); Calcium 9.4 mg/dL (8.4-10.2); Carbon Dioxide 28 mmol/L (22-29); Chloride 108 mmol/L (96-108); Cholesterol 220 mg/dL (<200); Estimated Glomerular Filt Rate > 60; HDL Cholesterol 42 mg/dL (>40); Potassium 4.2 mmol/L (3.3-5.1); Sodium 141 mmol/L (135-145); Total Protein 7.0 g/dL (6.5-8.0); Triglycerides 70 mg/dL (<150)
== END 2025-07-11 09:00 | disposition home or self-care (01) ==
LOC: HO.HMGCLDS 08:59
PROVIDERS: PCP Internal Medicine; Visit Provider Internal Medicine
DX: Z00.00 Encounter for general adult medical examination without abnormal findings (principal); E11.9 Type 2 diabetes mellitus without complications; E55.9 Vitamin D deficiency, unspecified; E78.00 Pure hypercholesterolemia, unspecified; D64.9 Anemia, unspecified; R30.0 Dysuria; Z12.5 Encounter for screening for malignant neoplasm of prostate
CPT/HCPCS: 36415; 80053; 80061; 81003; 82306; 83036; 84153; 84443; 85025